=== PATIENT | male | born 1940 | race Caucasian/White ===

== ENCOUNTER 2017-05-13 21:49 | Observation (INO) | payer OTHER ==
[~2017-05-13] VITALS: Ht 177.8 cm; Wt 93.0 kg
[~2017-05-13 21:49] MED LIST: ACET325T51 PO; ALBUHFA IH; FLUT1AER IH; LEVO500T2 PO; PRED20TA3 PO; TAMS0.4C32 PO; TIOT18CA3 IH
[2017-05-13 22:32] LABS: BASOPHILS % (AUTO) 0.5 % (0.0-5.0); EOSINOPHILS % (AUTO) 0.3 % (0.0-8.0); HEMATOCRIT 43.5 % (42-54); LYMPHOCYTES % (AUTO) 9.6 % (21.0-51.0); MEAN CORPUSCULAR HEMOGLOBIN 31.4 pg (27.0-33.0); MEAN CORPUSCULAR HGB CONC 34.1 g/dL (32.0-36.0); MONOCYTES % (AUTO) 7.2 % (3.0-13.0); NEUTROPHILS % (AUTO) 82.4 % (40.0-77.0); PLATELET COUNT (AUTO) 241 K/uL (130-400); RED BLOOD CELL COUNT(AUTO) 4.72 MIL/uL (4.50-6.20); RED CELL DISTRIBUTION WIDTH 15.3 % (11.0-15.5); WHITE BLOOD COUNT (AUTO) 12.2 K/uL (4.8-10.8)
[2017-05-13 22:38] LABS: CREATININE 1.3 mg/dL (0.5-1.5); POTASSIUM 4.6 mmol/L (3.5-5.1)
[2017-05-13 22:42] LABS: INR 1.01 (0.85-1.15); PARTIAL THROMBOPLASTIN TIME 28.4 SEC (26.3-35.5); PROTHROMBIN TIME 10.6 SEC (9.6-11.6)
[2017-05-13 22:43] LABS: ALBUMIN 2.9 g/dL (3.5-5.0); BILIRUBIN,TOTAL 0.4 mg/dL (0.2-1.0); TOTAL PROTEIN, SERUM 6.1 g/dL (6.0-8.3)
[2017-05-14] MEDS ORDERED: SODIUM CHLORIDE 0.9% 10 ML VIAL IVP PRN (01:15)
[2017-05-14] MEDS ORDERED: SODIUM CHLORIDE 0.9% 10 ML VIAL IVP SCH (01:15)
[2017-05-14] MEDS ORDERED: LEVOFLOXACIN 500 MG/D5W 100 ML 100 ML ONE (02:02)
[2017-05-14] MEDS ORDERED: METRONIDAZOLE 500MG/100ML BAG 100 ML ONE (02:02)
[2017-05-14] MEDS ORDERED: IPRATROPIUM/ALBUTEROL SULFATE 3 ML SOLUTION IH ONE (06:26)
[2017-05-14 06:57] LABS: BASOPHILS % (AUTO) 0.6 % (0.0-5.0); EOSINOPHILS % (AUTO) 1.5 % (0.0-8.0); HEMATOCRIT 43.3 % (42-54); LYMPHOCYTES % (AUTO) 13.4 % (21.0-51.0); MEAN CORPUSCULAR HEMOGLOBIN 30.9 pg (27.0-33.0); MEAN CORPUSCULAR HGB CONC 34.1 g/dL (32.0-36.0); MEAN CORPUSCULAR VOLUME 90.8 fL (79-99); MONOCYTES % (AUTO) 9.4 % (3.0-13.0); NEUTROPHILS % (AUTO) 75.1 % (40.0-77.0); PLATELET COUNT (AUTO) 205 K/uL (130-400); RED BLOOD CELL COUNT(AUTO) 4.77 MIL/uL (4.50-6.20); RED CELL DISTRIBUTION WIDTH 14.8 % (11.0-15.5); WHITE BLOOD COUNT (AUTO) 8.4 K/uL (4.8-10.8)
[2017-05-14 07:06] LABS: POTASSIUM 4.2 mmol/L (3.5-5.1)
[2017-05-14 07:11] LABS: ALBUMIN 2.8 g/dL (3.5-5.0); BILIRUBIN,TOTAL 0.5 mg/dL (0.2-1.0); TOTAL PROTEIN, SERUM 5.9 g/dL (6.0-8.3)
== END 2017-05-14 09:59 | disposition home or self-care (01) ==
LOC: EDH 21:49 → EDHIP 23:05
PROVIDERS: ADMIT Internal Medicine; ATTEND Internal Medicine
DX: K92.2 Gastrointestinal hemorrhage, unspecified (principal); J44.9 Chronic obstructive pulmonary disease, unspecified; Z85.46 Personal history of malignant neoplasm of prostate
CPT/HCPCS: 36415 ×2; 74176; 80053 ×2; 82270; 85025 ×2; 85610; 85730; 94640; 99285; G0378 ×11; J1956; J3490

== ENCOUNTER 2018-03-08 14:02 | Emergency (ER) | payer OTHER ==
[~2018-03-08 14:02] MED LIST changes: +FURO20TA4 PO; -LEVO500T2 PO; +PANT40TA25 PO; +PRED10TA23 PO; -PRED20TA3 PO
[2018-03-08] MEDS ORDERED: ASPIRIN 325 MG TABLET ONE (14:07)
[2018-03-08 14:14] LABS: BASOPHILS % (AUTO) 0.4 % (0.0-5.0); EOSINOPHILS % (AUTO) 2.8 % (0.0-8.0); LYMPHOCYTES % (AUTO) 15.5 % (21.0-51.0); MEAN CORPUSCULAR HGB CONC 33.4 g/dL (32.0-36.0); MONOCYTES % (AUTO) 9.8 % (3.0-13.0); NEUTROPHILS % (AUTO) 71.5 % (40.0-77.0); PLATELET COUNT (AUTO) 227 K/uL (130-400); RED BLOOD CELL COUNT(AUTO) 4.95 MIL/uL (4.50-6.20); WHITE BLOOD COUNT (AUTO) 9.5 K/uL (4.8-10.8)
[2018-03-08] MEDS ORDERED: ONDANSETRON HCL 4 MG/2 ML VIAL ONE (14:15)
[2018-03-08] MEDS ORDERED: MORPHINE SULFATE 4 MG/1ML SYG ONE (14:15)
[2018-03-08 14:31] LABS: INR 1.02 (0.85-1.15); PARTIAL THROMBOPLASTIN TIME 30.7 SEC (26.3-35.5); PROTHROMBIN TIME 10.7 SEC (9.6-11.6)
[2018-03-08] MEDS ORDERED: IOHEXOL-350 75 ML VIAL IV ONE (14:37)
[2018-03-08 14:40] LABS: CREATININE 1.1 mg/dL (0.5-1.5); POTASSIUM 4.3 mmol/L (3.5-5.1)
[2018-03-08 14:51] LABS: ALBUMIN 3.2 g/dL (3.5-5.0); BILIRUBIN,TOTAL 0.7 mg/dL (0.2-1.0); TOTAL PROTEIN, SERUM 6.4 g/dL (6.0-8.3)
== END 2018-03-08 17:03 | disposition home or self-care (01) ==
LOC: EDH 14:02
DX: R10.30 Lower abdominal pain, unspecified (principal); R06.02 Shortness of breath; K21.9 Gastro-esophageal reflux disease without esophagitis; J44.9 Chronic obstructive pulmonary disease, unspecified; I10 Essential (primary) hypertension; Z85.46 Personal history of malignant neoplasm of prostate; Z88.0 Allergy status to penicillin; Z87.891 Personal history of nicotine dependence
CPT/HCPCS: 36415; 71045; 74177; 80053; 82550; 83874; 84484; 85025; 85610; 85730; 93005; 94761; 96374; 96375; 99284; J2270; J2405; Q9967

== ENCOUNTER 2018-07-31 09:40 | Inpatient (IN) | payer OTHER | END 2018-08-03 17:01 | disposition home or self-care (01) | LOC: EDH 09:40 → EDHIP 11:18 → 4BH 12:44 | DX: J44.1 Chronic obstructive pulmonary disease with (acute) exacerbation (principal); J96.21 Acute and chronic respiratory failure with hypoxia; I10 Essential (primary) hypertension; M19.90 Unspecified osteoarthritis, unspecified site ==

== ENCOUNTER 2018-09-18 10:54 | Emergency (ER) | payer OTHER ==
[~2018-09-18 10:54] MED LIST changes: +BRIM5DRO OP; -PANT40TA25 PO; -TAMS0.4C32 PO
[2018-09-18] MEDS ORDERED: ASPIRIN 325 MG TABLET ONE (11:07)
[2018-09-18 11:14] LABS: BASOPHILS % (AUTO) 0.6 % (0.0-5.0); EOSINOPHILS % (AUTO) 1.2 % (0.0-8.0); HEMATOCRIT 46.3 % (42-54); LYMPHOCYTES % (AUTO) 11.5 % (21.0-51.0); MEAN CORPUSCULAR HEMOGLOBIN 31.7 pg (27.0-33.0); MEAN CORPUSCULAR HGB CONC 33.7 g/dL (32.0-36.0); MONOCYTES % (AUTO) 10.6 % (3.0-13.0); NEUTROPHILS % (AUTO) 76.1 % (40.0-77.0); PLATELET COUNT (AUTO) 212 K/uL (130-400); RED BLOOD CELL COUNT(AUTO) 4.92 MIL/uL (4.50-6.20); RED CELL DISTRIBUTION WIDTH 15.1 % (11.0-15.5); WHITE BLOOD COUNT (AUTO) 10.3 K/uL (4.8-10.8)
[2018-09-18 11:22] LABS: CREATININE 1.2 mg/dL (0.5-1.5); POTASSIUM 4.6 mmol/L (3.5-5.1)
[2018-09-18 11:32] LABS: ALBUMIN 2.9 g/dL (3.5-5.0); BILIRUBIN,TOTAL 0.6 mg/dL (0.2-1.0)
[2018-09-18] MEDS ORDERED: MAG HYDROX/AL HYDROX/SIMETH ES 30 ML SUSP UDCUP ONE (11:33)
[2018-09-18] MEDS ORDERED: LIDOCAINE HCL 2% VISCOUS 15 ML UDCUP ONE (11:33)
[2018-09-18 11:41] LABS: PROTHROMBIN TIME 10.5 SEC (9.6-11.6)
[2018-09-18] MEDS ORDERED: SODIUM CHLORIDE 0.9% 1000ML 1,000 ML IV ONE (12:54)
[2018-09-18] MEDS ORDERED: IOHEXOL 350 MG/ML 100ML INFUS..BTL IV ONE (13:15)
== END 2018-09-18 15:06 | disposition home or self-care (01) ==
LOC: EDH 10:54
DX: R07.89 Other chest pain (principal); M25.552 Pain in left hip; K21.9 Gastro-esophageal reflux disease without esophagitis; J44.9 Chronic obstructive pulmonary disease, unspecified; I10 Essential (primary) hypertension; Z88.0 Allergy status to penicillin; Z91.013 Allergy to seafood; Z85.46 Personal history of malignant neoplasm of prostate; Z87.891 Personal history of nicotine dependence
CPT/HCPCS: 36415; 71045; 71275; 80053; 82550; 83874; 84484; 85025; 85378; 85610; 85730; 93005; 99285; J7030; Q9967

== ENCOUNTER 2018-12-11 13:00 | Inpatient (IN) | payer OTHER ==
[~2018-12-11] VITALS: Ht 180.3 cm; Wt 88.7 kg
[2018-12-11 15:43] VITALS: BP 112/69
[2018-12-11] MEDS ORDERED: TRAM50TA4 PO (16:19)
[2018-12-11] MEDS ORDERED: BRIM5DRO OP (16:19)
[2018-12-11] MEDS ORDERED: FLUT1AER IH (16:19)
[2018-12-11] MEDS ORDERED: FURO20TA4 PO (16:19)
[2018-12-11] MEDS ORDERED: IPRA3AMP24 IH (16:19)
[2018-12-11] MEDS ORDERED: TIOT4MIS5 IH (16:19)
[2018-12-11] MEDS ORDERED: ALBUHFA IH (16:19)
[2018-12-11] MEDS ORDERED: TAMS-1 PO (16:19)
[2018-12-11] MEDS ORDERED: PRED5TAB PO (16:19)
[2018-12-11 16:27] LABS: APPEARANCE,URINE Clear (CLEAR); BILIRUBIN,URINE Negative (NEGATIVE); COLOR,URINE Yellow (YELLOW); GLUCOSE, URINE (UA) Negative (NEGATIVE); KETONES,URINE Negative (NEGATIVE); LEUKOCYTE ESTERASE ,URINE Negative (NEGATIVE); NITRATE,URINE Negative (NEGATIVE); OCCULT BLOOD,URINE Negative (NEGATIVE); PH,URINE 5.5 (5.0-8.0); PROTEIN,URINE Negative (NEGATIVE); UROBILINOGEN,URINE 0.2 mg/dL (0.2-1.0)
[2018-12-12] VITALS (21 sets, daily range): BP systolic 111–157; BP diastolic 58–98
[2018-12-12] MEDS: CLINDAMYCIN 900 MG/D5% WATER 50 ML IV SCH ×2 (06:00→10:00)
[2018-12-12] MEDS ORDERED: LACTATED RINGERS 1000ML 1,000 ML IV ONE (07:07)
[2018-12-12] MEDS ORDERED: CEFAZOLIN SODIUM 1 GM VIAL ONE (07:38)
[2018-12-12] MEDS ORDERED: CELECOXIB 200 MG CAP ONE (08:29)
[2018-12-12] MEDS ORDERED: ACETAMINOPHEN 325 MG TAB ONE (08:29)
[2018-12-12] MEDS ORDERED: KETOROLAC TROMETHAMINE 15MG/ML ONE (08:29)
[2018-12-12] MEDS ORDERED: OXYCODONE HCL 10 MG TAB.SR.12H PO ONE (08:29)
--- NOTE | 2018-12-12 08:44 | NUR ---
PT. ALLERGIC TO PCN AND RETURNED ANCEF AND STERIL WATER X 2
[2018-12-12] MEDS ORDERED: CLINDAMYCIN PHOSPHATE 150 MG/ML 6ML VIAL ONE (08:56)
[2018-12-12] MEDS ORDERED: LIDOCAINE PF 2% 5ML ABBOJECT ONE (09:07)
[2018-12-12] MEDS ORDERED: SUCCINYLCHOLINE 200MG/10ML SYR ONE (09:07)
[2018-12-12] MEDS ORDERED: PROPOFOL 10 MG/ML 20ML VIAL IV ONE (09:08)
[2018-12-12] MEDS ORDERED: FENTANYL CITRATE PF 50 MCG/1 ML 2ML VIAL ONE (09:08)
[2018-12-12] MEDS ORDERED: ROCURONIUM 10MG/1ML SYR 10 MG/ML ML ONE ×2 (09:08→12:24)
[2018-12-12] MEDS ORDERED: ROPIVACAINE 0.5% 5MG/ML 30ML IJ ONE (09:12)
[2018-12-12] MEDS ORDERED: EPHEDRINE SULFATE 50 MG/ML AMPULE ONE (10:15)
[2018-12-12] MEDS ORDERED: METHYLPREDNISOLONE SOD SUCC 125MG/2ML VIAL ONE ×2 (10:30→10:32)
[2018-12-12] MEDS ORDERED: GLYCOPYRROLATE 1 MG/5 ML SYRINGE ONE (12:50)
[2018-12-12] MEDS ORDERED: NEOSTIGMINE 5MG/5ML SYR IV ONE (12:50)
[2018-12-12] MEDS ORDERED: KETOROLAC TROMETHAMINE 30MG/ML ONE (12:53)
[2018-12-12] MEDS ORDERED: LIDOCAINE HCL-MPF 1% 2ML VIAL IV PRN (13:00)
[2018-12-12] MEDS ORDERED: POTASSIUM CHLORIDE 10% ELIXIR 20 MEQ/15 ML UDCUP PO PRN (13:00)
[2018-12-12] MEDS ORDERED: ONDANSETRON HCL 4 MG/2 ML VIAL IVP PRN (13:00)
[2018-12-12] MEDS ORDERED: POTASSIUM CHLORIDE 20 MEQ ERTAB PO PRN (13:00)
[2018-12-12] MEDS ORDERED: DiphenhydrAMINE HCL 50 MG/ML VIAL IVP PRN (13:00)
[2018-12-12] MEDS ORDERED: POTASSIUM CHLORIDE 20MEQ/100ML 100 ML IV PRN (13:00)
[2018-12-12] MEDS: ACETAMINOPHEN EXTRA STRENGTH 500 MG TABLET PO SCH ×2 (13:00→20:34)
[2018-12-12] MEDS ORDERED: CALCIUM CARBONATE 500 MG TABLET PO PRN (13:00)
[2018-12-12] MEDS ORDERED: FERROUS FUMARATE 324 MG TABLET PO PRN (13:00)
[2018-12-12] MEDS ORDERED: OXYCODONE HCL 5 MG TAB PO PRN ×2 (13:00)
[2018-12-12] MEDS ORDERED: TRAMADOL HCL 50 MG TABLET PO PRN (13:00)
[2018-12-12] MEDS ORDERED: MEPERIDINE-PF 25 MG/ML SYG ONE (13:27)
--- NOTE | 2018-12-12 14:25 | NUR ---
POST OP PT ARRIVED TO FLOOR FROM PACU, PT IS DROWSY BUT AROUSES EASILY, C/O PAIN TO RIGHT KNEE, REPOSITIONED FOR COMFORT. GOOD CMS, PLAN OF CARE DISCUSSED CALL STONE WITHIN REACH. Addendum: 12/13/18 at 1521 by YULIYA CARTWRIGHT RN ADDENDUM TO POST OP NOTE BRUISING NOTED TO UPPER EXTREMITIES, OPSITE DRESSING TO RIGHT POSTERIOR FOREARM, SOME DRAINAGE NOTED TO DRESSING AND ALSO TO LEFT ELBOW, D/I.
[2018-12-12] MEDS: SODIUM CHLORIDE 0.9% 1000ML 1,000 ML IV SCH ×2 (14:53→22:08)
[2018-12-12] MEDS: KETOROLAC TROMETHAMINE 15MG/ML IV PRN (15:06)
[2018-12-12] MEDS ORDERED: SUB TO ALBUTEROL 2.5MG/3ML NEBULES PER P&T IH PRN (16:00)
[2018-12-12] MEDS ORDERED: TIOTROPIUM BROMIDE IH PRN (16:00)
[2018-12-12] MEDS ORDERED: FUROSEMIDE 20 MG TABLET PO PRN (16:00)
--- NOTE | 2018-12-12 17:15 | NUR ---
INITIAL AND REFERRAL PATIENT SEEN POST OP W SPOUSE AND FRIEND AT BEDSIDE, PT DROWSY BUT AAOX3, LIVES W SPOUSE WHO WILL PROVIDE TRANSPORT NO DME, NO PROVIDER, NO H/H; CONSENT FOR [facility], FOR [facility] & [facility]. [facility] PT NOTES WILL SEND REFERRAL IN AM Addendum: 12/14/18 at 1718 by SILVINO WETZEL RN CM Amended: Links added.
[2018-12-12] MEDS: VANCOMYCIN 1GM+NS 250ML 250 ML IV SCH (17:49)
[2018-12-12] MEDS: IPRATROPIUM/ALBUTEROL SULFATE 3 ML SOLUTION IH SCH ×2 (18:07→23:23)
[2018-12-12] MEDS: BUDESONIDE 0.5 MG/2 ML INH IH SCH (18:17)
--- NOTE | 2018-12-12 20:00 | NUR ---
ASSESSMENT AWAKE, ALERT, OX3,NO SOB, NO C/O PAIN AT THIS TIME, ENCOURAGE PATIENT TO TAKE DEEP BREATHING EXERCISES AND REINFORCE IS, LEFT HIP WITH DRESSING D/I, BLE SCDS IN PLACE, TEDS REMOVE FOR TONITE, IVF INFUSING WELL, TEACH PATIENT AND FAMILY PLAN OF CARE AND EXPECTED OUTCOME, PATIENT VERBALIZES UNDERSTANDING VIA TEACH BACK
[2018-12-12] MEDS: BRIMONIDINE TARTRATE OP SCH (20:30)
[2018-12-12] MEDS: TIMOLOL OP SCH (20:30)
[2018-12-12] MEDS: FAMOTIDINE 20MG TAB 20 MG TAB PO SCH (20:33)
[2018-12-12] MEDS: APIXABAN 2.5 MG TABLET PO SCH (20:33)
[2018-12-12] MEDS: TAMSULOSIN HCL 0.4 MG CAP.ER.24H PO SCH (20:33)
[2018-12-12] MEDS: PREGABALIN 25 MG CAP PO SCH (20:33)
[2018-12-13 03:53] VITALS: BP 109/62
[2018-12-13] MEDS: ACETAMINOPHEN EXTRA STRENGTH 500 MG TABLET PO SCH ×3 (05:18→20:28)
[2018-12-13] MEDS: VANCOMYCIN 1GM+NS 250ML 250 ML IV SCH (05:36)
[2018-12-13] MEDS: KETOROLAC TROMETHAMINE 15MG/ML IV PRN (05:37)
[2018-12-13 05:44] LABS: HEMATOCRIT 36.7 % (42-54); MEAN CORPUSCULAR HEMOGLOBIN 31.7 pg (27.0-33.0); MEAN CORPUSCULAR HGB CONC 33.9 g/dL (32.0-36.0); MEAN CORPUSCULAR VOLUME 93.6 fL (79-99); PLATELET COUNT (AUTO) 230 K/uL (130-400); RED BLOOD CELL COUNT(AUTO) 3.92 MIL/uL (4.50-6.20); RED CELL DISTRIBUTION WIDTH 14.5 % (11.0-15.5); WHITE BLOOD COUNT (AUTO) 10.1 K/uL (4.8-10.8)
[2018-12-13 05:54] LABS: CREATININE 0.9 mg/dL (0.5-1.5); POTASSIUM 4.6 mmol/L (3.5-5.1)
[2018-12-13] MEDS: IPRATROPIUM/ALBUTEROL SULFATE 3 ML SOLUTION IH SCH ×3 (06:55→18:36)
[2018-12-13] MEDS: BUDESONIDE 0.5 MG/2 ML INH IH SCH ×2 (06:55→18:56)
[2018-12-13 07:00] VITALS: BP 121/65
[2018-12-13] MEDS: POLYETHYLENE GLYCOL 3350 17 GM POWD.PACK PO SCH (08:38)
[2018-12-13] MEDS: APIXABAN 2.5 MG TABLET PO SCH ×2 (08:38→20:28)
[2018-12-13] MEDS: FAMOTIDINE 20MG TAB 20 MG TAB PO SCH ×2 (08:39→20:28)
[2018-12-13] MEDS: PREGABALIN 25 MG CAP PO SCH ×2 (08:39→20:28)
[2018-12-13] MEDS: TIMOLOL OP SCH ×2 (08:39→20:00)
[2018-12-13] MEDS: PREDNISONE 5 MG TABLET PO SCH (08:39)
[2018-12-13] MEDS: BRIMONIDINE TARTRATE OP SCH ×2 (08:39→20:00)
[2018-12-13] MEDS ORDERED: TAMSULOSIN HCL 0.4 MG CAP.ER.24H PO SCH (09:00)
--- NOTE | 2018-12-13 09:36 | NUR ---
REFERRAL IN PROCESS TO [facility] CONSENT, CALL TO [facility] FLOWER FAXED
[2018-12-13 11:00] VITALS: BP 83/46
--- NOTE | 2018-12-13 11:00 | NUR ---
LOW B/P PATIENT WAS WORKING WITH PHYSICAL THERAPY WHEN THEY NOTICED THAT HE BECAME PALE. THEY ASSISTED HIM BACK TO BED AND CALLED THE NURSE. HIS B/P WAS CHECKED AND IT WAS A BIT LOW (86/43). DR. NGUYEN WAS NOTIFIED AND ORDERED A 500ML NS BOLUS. WE WILL RECHECK B/P ONCE BOLUS IN FINISHED.
--- NOTE | 2018-12-13 13:05 | NUR ---
ORTHOPEDIC SURGEON DR. NGUYEN IN TO SEE PATIENT. NEW ORDERS RECEIVED.
[2018-12-13 13:27] LABS: HEMATOCRIT 33.6 % (42-54)
[2018-12-13 13:45] LABS: CREATINE KINASE, TOTAL 64 U/L (21-232); MYOGLOBIN 146 ng/mL (10-92); TROPONIN I < 0.04 ng/mL (0.00-0.06)
--- NOTE | 2018-12-13 13:45 | NUR ---
CARDIOLOGY DR. HELLER IN TO SEE PATIENT. NEW ORDERS RECEIVED.
[2018-12-13] MEDS ORDERED: METHYLPREDNISOLONE SOD SUCC 125MG/2ML VIAL IVP SCH (14:00)
[2018-12-13 16:00] VITALS: BP 107/60
[2018-12-13 18:01] LABS: CREATINE KINASE, TOTAL 73 U/L (21-232); MYOGLOBIN 117 ng/mL (10-92); TROPONIN I < 0.04 ng/mL (0.00-0.06)
[2018-12-13 19:29] VITALS: BP 102/60
[2018-12-13] MEDS: TAMSULOSIN HCL 0.4 MG CAP.ER.24H PO SCH (20:28)
[2018-12-13] MEDS: SODIUM CHLORIDE 0.9% 1000ML 1,000 ML IV SCH (21:58)
[2018-12-13 23:13] VITALS: BP 101/62
[2018-12-14] VITALS (29 sets, daily range): BP systolic 51–144; BP diastolic 24–81
[2018-12-14] MEDS: IPRATROPIUM/ALBUTEROL SULFATE 3 ML SOLUTION IH SCH ×5 (00:07→21:40)
[2018-12-14] MEDS: SODIUM CHLORIDE 0.9% 1000ML 1,000 ML IV SCH (03:45)
[2018-12-14] MEDS: ACETAMINOPHEN EXTRA STRENGTH 500 MG TABLET PO SCH ×3 (03:54→21:20)
[2018-12-14 04:51] LABS: HEMATOCRIT 32.3 % (42-54); MEAN CORPUSCULAR HEMOGLOBIN 32.1 pg (27.0-33.0); MEAN CORPUSCULAR HGB CONC 34.4 g/dL (32.0-36.0); MEAN CORPUSCULAR VOLUME 93.3 fL (79-99); PLATELET COUNT (AUTO) 213 K/uL (130-400); RED BLOOD CELL COUNT(AUTO) 3.47 MIL/uL (4.50-6.20); RED CELL DISTRIBUTION WIDTH 14.5 % (11.0-15.5); WHITE BLOOD COUNT (AUTO) 9.5 K/uL (4.8-10.8)
[2018-12-14 04:59] LABS: BAND NEUTROPHILS % (MANUAL) 3 % (0-2); LYMPHOCYTES % (MANUAL) 7 % (22-44); MAN.DIFF COMMENT-IMPRESSION MANUAL DIFFERENTIAL; MONOCYTES % (MANUAL) 8 % (2-9); PLATELET MORPHOLOGY COMMENT ADEQUATE; SEGMENTED NEUTROPHILS % 82 % (40-70)
[2018-12-14] MEDS: BUDESONIDE 0.5 MG/2 ML INH IH SCH ×2 (05:31→18:42)
--- NOTE | 2018-12-14 06:10 | NUR ---
MD CONSULT DR. DEE TO SEE PATIENT , PER DR. DEE CAN BE DISCHARGE WHEN READY
--- NOTE | 2018-12-14 08:43 | NUR ---
S/P PHYSICAL THERAPY BLOOD PRESSURE AT 101/55 WITH PULSE OF 94 PRIOR TO THERAPY. S/P PHYSICAL THERAPY AMBULATING ABOUT 25 FT WITH WALKER AND ASSISTANCE, BLOOD PRESSURE NOTED TO BE 101/55 WITH PULSE OF 100. NO NOTED SOB OR DISTRESS OF SYMPTOMS OF LOW BLOOD PRESSURE.
[2018-12-14] MEDS: FAMOTIDINE 20MG TAB 20 MG TAB PO SCH ×2 (08:55→21:18)
[2018-12-14] MEDS: POLYETHYLENE GLYCOL 3350 17 GM POWD.PACK PO SCH (08:55)
[2018-12-14] MEDS: PREDNISONE 5 MG TABLET PO SCH (08:55)
[2018-12-14] MEDS: PREGABALIN 25 MG CAP PO SCH ×2 (08:55→21:21)
[2018-12-14] MEDS: APIXABAN 2.5 MG TABLET PO SCH ×2 (08:55→21:20)
[2018-12-14] MEDS: BRIMONIDINE TARTRATE OP SCH ×2 (09:00→21:00)
[2018-12-14] MEDS: TIMOLOL OP SCH ×2 (09:00→21:00)
--- NOTE | 2018-12-14 10:43 | NUR ---
CRACKLES S/P DUONEBULIZER TREATMENT. CALLED ME AND STATED PATIENT WAS GETTING CONGESTED AND REQUIRED MORE OXYGEN. CRACKLES HEARD WITHOUT STETHOSCOPE. PATIENT HAS HISTORY OF EX-SMOKER, PULMONARY FIBROSIS, AND COPD WITH USE OF OXYGEN AT HOME. O2 SATURATION OF 90-87% AT 2 LPM/NC. PATIENT ENCOURAGED TO DO IS. HOB ELEVATED TO 45 DEGREES. IS X10 BREATHS DONE WITH MAX RATE AT 2,000. PATIENT SPIT OUT GREENISH-YELLOW COLORED BREATH. O2 SATURATION INCREASED TO 92%. OXYGEN INCREASED TO 3LMP/VIA. WILL MONITOR PT CLOSELY.
--- NOTE | 2018-12-14 11:00 | NUR ---
PAGEMasood NGUYEN CALLED, PENDING CALL BACK REGARDING INCREASE IN SHORTNESS OF BREATH IN PATIENT. PATIENT IS AAOX3, [id number] OF 89% ON 4 LPM/NC. NON REBREATH MASK APPLIED. DR. HELLER PAGED, DR. DEE PAGED. PENDING CALL BACK. AT BEDSIDE.
--- NOTE | 2018-12-14 11:00 | NUR ---
JENELLE RO'Masood FOR [facility] SPOKE TO ALTAF ON THE PHONE, ADIVSED THAT JENELLE BAKER WILL INFORM PRIMARY EMBER Addendum: 12/14/18 at 1728 by SILVINO WETZEL RN CM Amended: Links added.
[2018-12-14] MEDS ORDERED: METHYLPREDNISOLONE SOD SUCC 40MG/ML 1ML ONE ×2 (12:20→12:21)
--- NOTE | 2018-12-14 12:20 | NUR ---
BIPAP/MEDICATIONS FOR SOB BIPAP PLACED ON PATIENT. PER DR. DEE, OK FOR LASIX IV AND SOLUMEDROL IV STAT. CHEST XRAY TO BE TAKEN. PATIENT IS AAOX3 WITH SHORTNESS OF BREATH, AT BEDSIDE. ATROVENT NEBULIZER TO BE GIVEN. DR. NGUYEN ON HER WAY UP TO SEE PATIENT.
[2018-12-14] MEDS ORDERED: FUROSEMIDE 10 MG/ML 2ML VIAL IV PRN (12:30)
[2018-12-14] MEDS ORDERED: IPRATROPIUM 0.5 MG/2.5 ML INH IH PRN (12:30)
[2018-12-14] MEDS ORDERED: FUROSEMIDE 10 MG/ML 2ML VIAL ONE (12:30)
[2018-12-14 12:42] LABS: ABG BASE EXCESS -1.3 mmol/L (-2.0-3.0); ABG HCO3 23.5 mmol/L (21.0-28.0); ABG OXYGEN SATURATION 93.4 % (95.0-99.0); ABG PCO2 40 mmHg (35-48)
[2018-12-14] MEDS ORDERED: METHYLPREDNISOLONE SOD SUCC 40MG/ML 1ML IVP SCH (13:18)
--- NOTE | 2018-12-14 13:30 | NUR ---
RAPID RESPONSE RAPID RESPONSE CALLED TO ROSELIA-LOOKING COLOR ON PATIENT, CONTINUATION OF SHORTNESS OF BREATH, AND HEART RATE DROPPING FROM 80S TO 30S PER MONITOR. TELMONITOR READING RATE AT 87 VPACED PER HISTORY OF PACEMAKER. RAPID RESPONSE CANCELLED. PATIENT WILL BE TRANSFERRED TO ICU PER DR. NGUYEN ORDERS.
--- NOTE | 2018-12-14 13:45 | NUR ---
TRANSFER Received pt from 4th floor, report given by EMBER Goode. On Bipap, tolerating prescribed settings. Spouse at bedside. 20 gauge IV catheter started to left wrist, patency confirmed. V-paced in 70s. High-garcía's position. SCDs in place.
--- NOTE | 2018-12-14 13:45 | NUR ---
TRANSFER TO ICU TRANSFER TO ROOM 217. PATIENT IS AAOX3, REPORT GIVEN TO IMELDA PA. VITAL SIGNS STABLE, BIPAP IN PLACE. [id number] OF 99%.
[2018-12-14] MEDS ORDERED: POTASSIUM CHLORIDE 20MEQ/100ML 100 ML IV PRN (14:30)
[2018-12-14] MEDS ORDERED: LIDOCAINE HCL-MPF 1% 2ML VIAL IV PRN (14:30)
--- NOTE | 2018-12-14 14:30 | NUR ---
MD VISIT Dr. Rosas in to see pt. Update given. New orders received and will carry out.
[2018-12-14] MEDS: DOXYCYCLINE 100MG+NS 250ML 250 ML IV SCH (14:38)
[2018-12-14] MEDS: FUROSEMIDE 10 MG/ML 2ML VIAL IV SCH (14:38)
[2018-12-14 14:50] LABS: HEMATOCRIT 36.5 % (42-54); MEAN CORPUSCULAR HEMOGLOBIN 31.8 pg (27.0-33.0); MEAN CORPUSCULAR HGB CONC 33.7 g/dL (32.0-36.0); MEAN CORPUSCULAR VOLUME 94.4 fL (79-99); PLATELET COUNT (AUTO) 253 K/uL (130-400); RED BLOOD CELL COUNT(AUTO) 3.86 MIL/uL (4.50-6.20); RED CELL DISTRIBUTION WIDTH 14.8 % (11.0-15.5); WHITE BLOOD COUNT (AUTO) 6.2 K/uL (4.8-10.8)
[2018-12-14 15:01] LABS: MAGNESIUM 1.7 mg/dL (1.80-2.40); POTASSIUM 4.7 mmol/L (3.5-5.1)
[2018-12-14] MEDS: METHYLPREDNISOLONE SOD SUCC 40MG/ML 1ML IVP SCH ×2 (15:10→23:07)
[2018-12-14] MEDS: NOREPINEPHRINE 4MG/NS 250ML 250 ML IV SCH (15:20)
--- NOTE | 2018-12-14 15:30 | NUR ---
REFUSAL Pt refused Yancey catheter insertion, reassurance unsuccessful. Will reattempt later.
[2018-12-14 15:42] LABS: BAND NEUTROPHILS % (MANUAL) 25 % (0-2); LYMPHOCYTES % (MANUAL) 3 % (22-44); MAN.DIFF COMMENT-IMPRESSION MANUAL DIFFERENTIAL; MONOCYTES % (MANUAL) 1 % (2-9); PLATELET MORPHOLOGY COMMENT ADEQUATE; SEGMENTED NEUTROPHILS % 71 % (40-70)
[2018-12-14] MEDS ORDERED: MAGNESIUM 2GM PREMIX 50ML 50 ML IV ONE (15:42)
[2018-12-14] MEDS ORDERED: MAGNESIUM SULFATE 1 GM in SODIUM CHLORIDE 0.9% 50 ML IV PRN (15:45)
[2018-12-14] MEDS: INSULIN HUMULIN R 100 UNIT/ML 3ML SQ SCH ×2 (15:46→22:47)
--- NOTE | 2018-12-14 16:30 | NUR ---
PACEMAKER [employer] patient service representative in to interrogate device, negative for any events, normal functioning as per Rep.
[2018-12-14] MEDS: MEROPENEM 1 GM VIAL IVP SCH (16:45)
--- NOTE | 2018-12-14 17:14 | NUR ---
REFUSAL Pt awake, alert, and oriented x3. Continues to refuse mccracken catheter insertion despite explanation given. Spouse at bedside.
--- NOTE | 2018-12-14 17:29 | NUR ---
MD NOTIFICATION Dr. Narayan notified about pt transferred to ICU, no orders received.
--- NOTE | 2018-12-14 17:32 | NUR ---
CALL MADE TO [facility] TO LET ALTAF KNOW PT IN ICU ADVISED THE AUTH FOR THE SNF IS GOOD UNTIL MONDAY Addendum: 12/14/18 at 1734 by SILVINO WETZEL RN Amended: Links added.
[2018-12-14] MEDS: ACETYLCYSTEINE 20% 200MG/ML 4ML VIAL IH SCH ×2 (18:42→21:41)
[2018-12-14] MEDS: TAMSULOSIN HCL 0.4 MG CAP.ER.24H PO SCH (21:21)
[2018-12-15] VITALS (36 sets, daily range): BP systolic 69–145; BP diastolic 38–81
[2018-12-15] MEDS: IPRATROPIUM/ALBUTEROL SULFATE 3 ML SOLUTION IH SCH ×6 (01:36→21:53)
[2018-12-15] MEDS: ACETYLCYSTEINE 20% 200MG/ML 4ML VIAL IH SCH ×6 (01:37→21:52)
[2018-12-15] MEDS: MEROPENEM 1 GM VIAL IVP SCH ×3 (01:45→18:49)
[2018-12-15] MEDS: NOREPINEPHRINE 4MG/NS 250ML 250 ML IV SCH (01:58)
[2018-12-15] MEDS: DOXYCYCLINE 100MG+NS 250ML 250 ML IV SCH ×2 (01:59→14:44)
[2018-12-15] MEDS: FUROSEMIDE 10 MG/ML 2ML VIAL IV SCH ×2 (02:02→14:41)
[2018-12-15 03:50] LABS: HEMATOCRIT 36.2 % (42-54); MEAN CORPUSCULAR HEMOGLOBIN 31.1 pg (27.0-33.0); MEAN CORPUSCULAR HGB CONC 32.8 g/dL (32.0-36.0); MEAN CORPUSCULAR VOLUME 94.7 fL (79-99); PLATELET COUNT (AUTO) 239 K/uL (130-400); RED BLOOD CELL COUNT(AUTO) 3.83 MIL/uL (4.50-6.20); RED CELL DISTRIBUTION WIDTH 14.9 % (11.0-15.5); WHITE BLOOD COUNT (AUTO) 16.9 K/uL (4.8-10.8)
[2018-12-15 04:00] LABS: ABG HCO3 22.7 mmol/L (21.0-28.0); ABG OXYGEN SATURATION 97.3 % (95.0-99.0); ABG PCO2 32 mmHg (35-48)
[2018-12-15 04:07] LABS: INR 1.08 (0.85-1.15); PARTIAL THROMBOPLASTIN TIME 36.4 SEC (26.3-35.5); PROTHROMBIN TIME 11.3 SEC (9.6-11.6)
[2018-12-15 04:21] LABS: ALBUMIN 2.3 g/dL (3.5-5.0); BILIRUBIN,TOTAL 0.5 mg/dL (0.2-1.0); CREATININE 1.2 mg/dL (0.5-1.5); MAGNESIUM 2.4 mg/dL (1.80-2.40); PHOSPHORUS 3.5 mg/dL (2.5-4.9); POTASSIUM 4.8 mmol/L (3.5-5.1); THYROID STIMULATING HORMONE 0.09 uIU/mL (0.36-3.74); TOTAL PROTEIN, SERUM 5.8 g/dL (6.0-8.3)
[2018-12-15] MEDS: ACETAMINOPHEN EXTRA STRENGTH 500 MG TABLET PO SCH ×4 (05:00→20:39)
[2018-12-15] MEDS: BUDESONIDE 0.5 MG/2 ML INH IH SCH ×2 (05:17→18:09)
[2018-12-15] MEDS: INSULIN HUMULIN R 100 UNIT/ML 3ML SQ SCH ×4 (06:32→21:38)
[2018-12-15] MEDS: METHYLPREDNISOLONE SOD SUCC 40MG/ML 1ML IVP SCH ×3 (06:34→23:40)
[2018-12-15] MEDS: PREGABALIN 25 MG CAP PO SCH ×2 (08:49→20:38)
[2018-12-15] MEDS: FAMOTIDINE 20MG TAB 20 MG TAB PO SCH ×2 (08:50→20:38)
[2018-12-15] MEDS: POLYETHYLENE GLYCOL 3350 17 GM POWD.PACK PO SCH (08:50)
[2018-12-15] MEDS: APIXABAN 2.5 MG TABLET PO SCH ×2 (08:50→20:37)
[2018-12-15] MEDS: BRIMONIDINE TARTRATE OP SCH ×2 (09:00→20:57)
[2018-12-15] MEDS: TIMOLOL OP SCH ×2 (09:00→20:57)
[2018-12-15] MEDS ORDERED: BISACODYL 10 MG SUPP.RECT RC PRN (13:00)
[2018-12-15] MEDS: TAMSULOSIN HCL 0.4 MG CAP.ER.24H PO SCH (20:37)
[2018-12-16] VITALS (44 sets, daily range): BP systolic 104–153; BP diastolic 44–109
[2018-12-16] MEDS: ACETYLCYSTEINE 20% 200MG/ML 4ML VIAL IH SCH ×6 (01:32→22:22)
[2018-12-16] MEDS: IPRATROPIUM/ALBUTEROL SULFATE 3 ML SOLUTION IH SCH ×4 (01:32→13:21)
--- NOTE | 2018-12-16 01:50 | NUR ---
BIPAP PATIENT REMOVED BIPAP. REFUSED TO PLACE BACK ON. EDUCATED ON USE. CONTINUES TO REFUSE. NASAL CANNULA APPLIED. PATIENT ACKNOWLEDGED TO INFORM IF THERE ARE ANY CHANGES IN BREATHING.
[2018-12-16] MEDS: MEROPENEM 1 GM VIAL IVP SCH ×3 (02:02→16:48)
[2018-12-16] MEDS: DOXYCYCLINE 100MG+NS 250ML 250 ML IV SCH ×2 (02:09→14:55)
[2018-12-16] MEDS: FUROSEMIDE 10 MG/ML 2ML VIAL IV SCH ×2 (02:25→14:55)
[2018-12-16 03:40] LABS: MEAN CORPUSCULAR HEMOGLOBIN 31.6 pg (27.0-33.0); MEAN CORPUSCULAR HGB CONC 33.8 g/dL (32.0-36.0); MEAN CORPUSCULAR VOLUME 93.5 fL (79-99); PLATELET COUNT (AUTO) 235 K/uL (130-400); RED BLOOD CELL COUNT(AUTO) 3.32 MIL/uL (4.50-6.20); RED CELL DISTRIBUTION WIDTH 14.6 % (11.0-15.5); WHITE BLOOD COUNT (AUTO) 17.1 K/uL (4.8-10.8)
[2018-12-16 04:16] LABS: CREATININE 0.9 mg/dL (0.5-1.5); MAGNESIUM 2.3 mg/dL (1.80-2.40); PHOSPHORUS 2.7 mg/dL (2.5-4.9); POTASSIUM 4.6 mmol/L (3.5-5.1)
[2018-12-16] MEDS: ACETAMINOPHEN EXTRA STRENGTH 500 MG TABLET PO SCH ×3 (05:08→21:38)
[2018-12-16] MEDS: INSULIN HUMULIN R 100 UNIT/ML 3ML SQ SCH ×4 (06:37→21:52)
[2018-12-16] MEDS: METHYLPREDNISOLONE SOD SUCC 40MG/ML 1ML IVP SCH ×3 (06:40→22:46)
[2018-12-16] MEDS: BUDESONIDE 0.5 MG/2 ML INH IH SCH ×2 (07:15→18:20)
[2018-12-16] MEDS: PREGABALIN 25 MG CAP PO SCH ×2 (09:02→21:36)
[2018-12-16] MEDS: POLYETHYLENE GLYCOL 3350 17 GM POWD.PACK PO SCH (09:02)
[2018-12-16] MEDS: FAMOTIDINE 20MG TAB 20 MG TAB PO SCH ×2 (09:02→21:36)
[2018-12-16] MEDS: APIXABAN 2.5 MG TABLET PO SCH ×2 (09:02→21:37)
[2018-12-16] MEDS: BRIMONIDINE TARTRATE OP SCH ×2 (09:03→21:51)
[2018-12-16] MEDS: TIMOLOL OP SCH ×2 (09:03→21:51)
--- NOTE | 2018-12-16 14:00 | NUR ---
DISCUSSED DC ZAC Alcocer MD. NO DOWNGRADE TO [facility] TODAY NOT READY INSURANCE AUTH FOR [facility] REC'D MONDAY, WILL LOSE TOMORROW, AND WILL NEED TO RESUBMIT ON MONDAY Addendum: 12/16/18 at 1438 by SILVINO WETZEL RN Amended: Links added.
[2018-12-16] MEDS: IPRATROPIUM 0.5 MG/2.5 ML INH IH SCH ×2 (18:20→22:21)
[2018-12-16] MEDS: TAMSULOSIN HCL 0.4 MG CAP.ER.24H PO SCH (21:36)
[2018-12-17] VITALS (19 sets, daily range): BP systolic 105–150; BP diastolic 63–110
[2018-12-17] MEDS: MEROPENEM 1 GM VIAL IVP SCH ×3 (00:53→16:30)
[2018-12-17] MEDS: IPRATROPIUM 0.5 MG/2.5 ML INH IH SCH ×6 (01:39→22:08)
[2018-12-17] MEDS: ACETYLCYSTEINE 20% 200MG/ML 4ML VIAL IH SCH ×2 (01:39→06:00)
[2018-12-17] MEDS: DOXYCYCLINE 100MG+NS 250ML 250 ML IV SCH (02:00)
[2018-12-17] MEDS: FUROSEMIDE 10 MG/ML 2ML VIAL IV SCH (02:59)
[2018-12-17 03:40] LABS: HEMATOCRIT 34.4 % (42-54); MEAN CORPUSCULAR HEMOGLOBIN 31.2 pg (27.0-33.0); MEAN CORPUSCULAR HGB CONC 33.1 g/dL (32.0-36.0); MEAN CORPUSCULAR VOLUME 94.3 fL (79-99); NUCLEATED RED BLOOD CELLS 0.3 % (0.0-0.19); PLATELET COUNT (AUTO) 276 K/uL (130-400); RED BLOOD CELL COUNT(AUTO) 3.65 MIL/uL (4.50-6.20); RED CELL DISTRIBUTION WIDTH 14.8 % (11.0-15.5); WHITE BLOOD COUNT (AUTO) 14.1 K/uL (4.8-10.8)
[2018-12-17 03:59] LABS: CREATININE 0.9 mg/dL (0.5-1.5); MAGNESIUM 2.4 mg/dL (1.80-2.40); PHOSPHORUS 3.1 mg/dL (2.5-4.9); POTASSIUM 4.8 mmol/L (3.5-5.1)
[2018-12-17] MEDS: ACETAMINOPHEN EXTRA STRENGTH 500 MG TABLET PO SCH (05:02)
[2018-12-17] MEDS: BUDESONIDE 0.5 MG/2 ML INH IH SCH ×2 (06:30→19:09)
[2018-12-17] MEDS: METHYLPREDNISOLONE SOD SUCC 40MG/ML 1ML IVP SCH ×2 (06:44→14:58)
[2018-12-17] MEDS: INSULIN HUMULIN R 100 UNIT/ML 3ML SQ SCH ×4 (06:45→21:00)
[2018-12-17] MEDS: BRIMONIDINE TARTRATE OP SCH ×2 (06:58→22:01)
[2018-12-17] MEDS: TIMOLOL OP SCH ×2 (06:58→22:01)
[2018-12-17] MEDS: PREGABALIN 25 MG CAP PO SCH ×2 (08:52→22:01)
[2018-12-17] MEDS: POLYETHYLENE GLYCOL 3350 17 GM POWD.PACK PO SCH (08:53)
[2018-12-17] MEDS: APIXABAN 2.5 MG TABLET PO SCH ×2 (08:53→22:01)
[2018-12-17] MEDS: FAMOTIDINE 20MG TAB 20 MG TAB PO SCH ×2 (08:53→22:01)
[2018-12-17] MEDS ORDERED: PHARMACY COMMUNICATION MISC SCH (13:15)
[2018-12-17] MEDS ORDERED: ACETAMINOPHEN ELIXIR 160 MG/5ML UDCUP PO PRN (13:15)
[2018-12-17] MEDS ORDERED: FUROSEMIDE 20 MG TABLET PO SCH (14:00)
[2018-12-17] MEDS ORDERED: ACETAMINOPHEN ELIXIR 325 MG/10.15ML UDCUP PO SCH (14:00)
--- NOTE | 2018-12-17 16:45 | NUR ---
TRANSFER REPORT GIVEN TO EMBER CUMMINGS AND PATIENT TRANSFERRED TO RM 429; AT BEDSIDE
--- NOTE | 2018-12-17 17:30 | NUR ---
DR. PATRICK PARKER NOTIFIED THAT ELIQUIS DOSE INCREASED FROM 2.5MG TO 5MG. DR. NGUYEN REPLIED OKAY TO CONTINUE INCREASED DOSE OF ELIQUIS. ALSO INFORMED MD THAT PATIENTS BACK OF LEFT KNEE HAS BRUISING AND LEFT HIP HAS BRUISING AND SWELLING. LEFT HIP SWELLING IS BIGGER THAN EXPECTED DURING THESE TYPES OF DRESSING CHANGES. MD REPLIED SINCE PATIENT HAS NO PAIN TO JUST CONTINUE TO MONITOR.
[2018-12-17] MEDS: ACETAMINOPHEN ELIXIR 650 MG/20.3 ML UDCUP PO PRN (22:00)
[2018-12-17] MEDS: DOXYCYCLINE HYCLATE 100 MG TABLET PO SCH (22:01)
[2018-12-17] MEDS: TAMSULOSIN HCL 0.4 MG CAP.ER.24H PO SCH (22:01)
[2018-12-18] MEDS: MEROPENEM 1 GM VIAL IVP SCH ×2 (00:39→09:26)
[2018-12-18] MEDS: METHYLPREDNISOLONE SOD SUCC 40MG/ML 1ML IVP SCH ×2 (00:39→09:26)
[2018-12-18] MEDS: IPRATROPIUM 0.5 MG/2.5 ML INH IH SCH ×6 (01:43→22:07)
[2018-12-18 03:42] VITALS: BP 124/87
[2018-12-18 05:06] LABS: HEMATOCRIT 32.1 % (42-54); MEAN CORPUSCULAR HEMOGLOBIN 31.6 pg (27.0-33.0); NUCLEATED RED BLOOD CELLS 0.2 % (0.0-0.19); PLATELET COUNT (AUTO) 292 K/uL (130-400); RED BLOOD CELL COUNT(AUTO) 3.46 MIL/uL (4.50-6.20); RED CELL DISTRIBUTION WIDTH 14.9 % (11.0-15.5); WHITE BLOOD COUNT (AUTO) 11.4 K/uL (4.8-10.8)
[2018-12-18] MEDS: BUDESONIDE 0.5 MG/2 ML INH IH SCH ×2 (05:08→19:48)
[2018-12-18 05:26] LABS: CREATININE 0.9 mg/dL (0.5-1.5); MAGNESIUM 2.3 mg/dL (1.80-2.40); POTASSIUM 4.7 mmol/L (3.5-5.1)
[2018-12-18] MEDS: FUROSEMIDE 20 MG TABLET PO SCH ×2 (06:10→20:09)
[2018-12-18] MEDS: INSULIN HUMULIN R 100 UNIT/ML 3ML SQ SCH ×4 (06:10→20:18)
[2018-12-18 08:23] VITALS: BP 143/85
[2018-12-18] MEDS: POLYETHYLENE GLYCOL 3350 17 GM POWD.PACK PO SCH (09:00)
--- NOTE | 2018-12-18 10:00 | NUR ---
ELIQUIS PATIENT REFUSED TO TAKE ELIQUIS 5MG PO BID, PATIENT STATED HE WANTED TO TAKE ELIQUIS 2.5MG PO. I DID INFORM PATIENT THAT DR. NGUYEN IS AWARE OF INCREASED DOSE OF ELIQUIS AND DID OKAY FOR PATIENT TO CONTINUE INCREASED DOSE OF ELIQUIS. PATIENT REPLIED "I HAVE A LOT OF BRUISING EVERYWHERE, I DON'T NEED THAT A HIGHER DOSE OF THE BLOOD THINNER." ADMINISTERED ELIQUIS 2.5 MG PO BID
[2018-12-18] MEDS: BRIMONIDINE TARTRATE OP SCH ×2 (10:17→20:18)
[2018-12-18] MEDS: TIMOLOL OP SCH ×2 (10:17→20:18)
[2018-12-18] MEDS: PREGABALIN 25 MG CAP PO SCH ×2 (10:18→20:09)
[2018-12-18] MEDS: DOXYCYCLINE HYCLATE 100 MG TABLET PO SCH ×2 (10:19→20:08)
[2018-12-18] MEDS: APIXABAN 2.5 MG TABLET PO SCH ×2 (10:19→20:09)
[2018-12-18] MEDS: FAMOTIDINE 20MG TAB 20 MG TAB PO SCH ×2 (10:19→20:09)
--- NOTE | 2018-12-18 11:30 | NUR ---
PLAN CHANGE TO [facility] AUTH EXPIRING FOR [facility], PT STILL ON BIPAP MAYBE NEEDS LASIX TODAY? POKE TO WYATT LINARES RE DC NEEDS,'SWITCH TO [facility] WITH PT'S OK , REFERAL SENT, NOHELIA CAME TO SEE JENELLE ZUNIGA IN PROCESS Addendum: 12/20/18 at 2026 by SILVINO WETZEL RN CM Amended: Links added.
[2018-12-18 11:43] VITALS: BP 135/84
--- NOTE | 2018-12-18 11:45 | NUR ---
DYSPHAGIA LEONELA SAVAGE. -S/S OF ASPIRATION. RECOMMEND CONTINUED REGULAR, THIN LIQUIDS (GI SOFT DIET), PILLS WHOLE WITH LIQUIDS ONE BY ONE. Addendum: 12/18/18 at 1312 by RAJIV BELL, [facility] Amended: Links added.
[2018-12-18 16:28] VITALS: BP 132/71
--- NOTE | 2018-12-18 16:30 | NUR ---
AUTH REC FROM [facility] NO DC ORDERS TODAY. SPOKE W KEVIN PA. Addendum: 12/20/18 at 2034 by SILVINO WETZEL RN CM ERROR!!- SHOULD READ REFERRAL TO [facility], JENELLE PENDING NO DC ORDERS TODAY, SPOKE TO KEVIN PA
--- NOTE | 2018-12-18 16:31 | NUR ---
REFERRAL TO [facility], AUTH PENDING NO DC ORDERS TODAY, SPOKE TO PRIMARY RN
[2018-12-18 19:05] VITALS: BP 141/99
[2018-12-18] MEDS: ACETAMINOPHEN ELIXIR 650 MG/20.3 ML UDCUP PO PRN (20:08)
[2018-12-18] MEDS: TAMSULOSIN HCL 0.4 MG CAP.ER.24H PO SCH (20:09)
[2018-12-18 23:22] VITALS: BP 127/77
[2018-12-19] MEDS: IPRATROPIUM 0.5 MG/2.5 ML INH IH SCH ×3 (02:03→09:42)
[2018-12-19 03:20] VITALS: BP 147/73
[2018-12-19] MEDS: BUDESONIDE 0.5 MG/2 ML INH IH SCH ×2 (05:09→18:25)
[2018-12-19] MEDS: FUROSEMIDE 20 MG TABLET PO SCH ×2 (05:29→17:24)
[2018-12-19] MEDS: INSULIN HUMULIN R 100 UNIT/ML 3ML SQ SCH ×3 (05:36→17:19)
[2018-12-19 07:53] VITALS: BP 152/69
[2018-12-19 07:59] VITALS: BP 152/69
[2018-12-19] MEDS: PREGABALIN 25 MG CAP PO SCH ×2 (08:52→21:35)
[2018-12-19] MEDS: DOXYCYCLINE HYCLATE 100 MG TABLET PO SCH ×2 (08:52→21:35)
[2018-12-19] MEDS: APIXABAN 2.5 MG TABLET PO SCH ×2 (08:52→21:36)
[2018-12-19] MEDS: POLYETHYLENE GLYCOL 3350 17 GM POWD.PACK PO SCH (08:53)
[2018-12-19] MEDS: FAMOTIDINE 20MG TAB 20 MG TAB PO SCH ×2 (08:53→21:35)
[2018-12-19] MEDS: TIMOLOL OP SCH (08:55)
[2018-12-19] MEDS: BRIMONIDINE TARTRATE OP SCH (08:55)
[2018-12-19] MEDS: ACETAMINOPHEN ELIXIR 650 MG/20.3 ML UDCUP PO PRN ×2 (09:00→15:17)
[2018-12-19] MEDS ORDERED: PREDNISONE 20 MG TABLET PO SCH (09:00)
[2018-12-19] MEDS ORDERED: FUROSEMIDE 10 MG/ML 4ML VIAL IV SCH (12:00)
[2018-12-19 12:06] VITALS: BP 106/59
[2018-12-19] MEDS ORDERED: IPRATROPIUM 0.5 MG/2.5 ML INH IH PRN (13:45)
--- NOTE | 2018-12-19 16:13 | NUR ---
RDSCREEN - LOS X 7 Pt Admitted for Fx of Head of Left Femur. Pt tolerating GI Soft/[place], Mechanical Soft Diet with no report of GI distress. Poor PO intake at <50% as per Pt. Pt requests Ensure with meals. Pt LBM 12/18/18. Pt monitored labs: Glu 129, BUN 37, Ca 8.4, Alb 2.3. Pt reports Fish Allergy. RD to continue to monitor. Please notify RD as additional nutrition concerns arise. Thank you. Addendum: 12/19/18 at [address] Amended: Links added.
[2018-12-19 16:24] VITALS: BP 93/56
--- NOTE | 2018-12-19 16:30 | NUR ---
JENELLE RECD FROM [facility] DC TODAY? SPOKE TO PRIMARY RN
[2018-12-19] MEDS ORDERED: APIX2.5T PO (17:46)
[2018-12-19] MEDS ORDERED: ACET650S28 PO (17:46)
[2018-12-19 19:44] VITALS: BP 123/67
--- NOTE | 2018-12-19 20:05 | NUR ---
DRESSING CHANGE LEFT HIP DRESSING CHANGED, CLEANSED INCISION WITH NORMAL SALINE, INCISION WITH NO REDNESS OR DRAINAGE NOTED, EDEMA TO HIP AREA AND EXTENSIVE BRUISING IS NOTED, COVERED INCISION WITH GAUZE AND HYPAFIX TAPE. ALSO CHANGED DRESSING TO RIGHT POSTERIOR FOREARM, SKIN TEAR IS DRY, NO REDNESS, CLEANSED WITH NORMAL SALINE AND COVERED WITH NON ADHESIVE GAUZE PAD AND USED PAPER TAPE. TOLERATED WELL.
--- NOTE | 2018-12-19 20:43 | NUR ---
CALL TO [facility] T/C PLACED TO [facility], KENA HOGUE WHO TRANSFERRED CALL, PHONE IS RINGING SEVERAL TIMES AND NO ANSWER. AND LENNIE [facility] SAID WILL TAKE REPORT.
--- NOTE | 2018-12-19 21:05 | NUR ---
DISCHARGE INSTRUCTIONS REVIEWED DISCHARGE INSTRUCTIONS WITH PT AND , COPY OF DISCHARGE INSTRUCTIONS GIVEN AND ALSO PLACED A COPY FOR FACILITY ALSO INFORMED THAT THE PRESCRIPTION HAS BEEN PLACED IN THE PACKET FOR FACILITY.
--- NOTE | 2018-12-19 21:20 | NUR ---
CALL FROM [facility] T/C FROM [facility], REQUESTING MED REC TO BE FAXED. Addendum: 12/20/18 at 0316 by YULIYA CARTWRIGHT RN ADDENDUM ALSO SAID THAT THEIR TRYING TO REACH THEIR [employer]. STATES THAT USUALLY THEIR [employer] INTER[employer]IP IS NOT AVAILABLE AFTER 6PM.
[2018-12-19] MEDS: TAMSULOSIN HCL 0.4 MG CAP.ER.24H PO SCH (21:35)
--- NOTE | 2018-12-19 21:50 | NUR ---
CALL FROM [facility] T/C FROM [facility] ASKING HOW MUCH THE PT WEIGHS SO THEY CAN BRING THE APPROPRIATE WHEELCHAIR. ALSO REMINDED HER THAT PT USES 02 .
--- NOTE | 2018-12-19 22:25 | NUR ---
DISCHARGE PT WAS DISCHARGE TO [facility], NO DISTRESS NOTED.
== END 2018-12-19 22:23 | DRG 853 ==
LOC: EDSTATUS 13:00 → DAHIP 12-12 06:42 → 4AH 12-12 13:24 → 2CH 12-14 13:52 → 2BH 12-15 13:30 → 4AH 12-17 16:55
PROVIDERS: ADMIT Orthopaedic Surgery; ATTEND Orthopaedic Surgery
PROC: 0SRB0JZ Replacement of Left Hip Joint with Synthetic Substitute, Open Approach (ICD-10-PCS; principal; 2018-12-12 09:48)
PROC: 5A09357 Assistance with Respiratory Ventilation, Less than 24 Consecutive Hours, Continuous Positive Airway Pressure (ICD-10-PCS; 2018-12-14)
PROC: 5A09357 Assistance with Respiratory Ventilation, Less than 24 Consecutive Hours, Continuous Positive Airway Pressure (ICD-10-PCS; 2018-12-15)
PROC: 5A09357 Assistance with Respiratory Ventilation, Less than 24 Consecutive Hours, Continuous Positive Airway Pressure (ICD-10-PCS; 2018-12-16)
PROC: 5A09357 Assistance with Respiratory Ventilation, Less than 24 Consecutive Hours, Continuous Positive Airway Pressure (ICD-10-PCS; 2018-12-17)
DX: A41.9 Sepsis, unspecified organism (principal); S72.052A Unspecified fracture of head of left femur, initial encounter for closed fracture; J96.22 Acute and chronic respiratory failure with hypercapnia; I50.33 Acute on chronic diastolic (congestive) heart failure; R65.21 Severe sepsis with septic shock; J44.1 Chronic obstructive pulmonary disease with (acute) exacerbation; E11.9 Type 2 diabetes mellitus without complications; I11.0 Hypertensive heart disease with heart failure; I45.9 Conduction disorder, unspecified; I48.2 Chronic atrial fibrillation; I95.81 Postprocedural hypotension; J84.10 Pulmonary fibrosis, unspecified; T17.990A Other foreign object in respiratory tract, part unspecified in causing asphyxiation, initial encounter; Z79.51 Long term (current) use of inhaled steroids; Z79.52 Long term (current) use of systemic steroids; Z85.46 Personal history of malignant neoplasm of prostate; Z87.891 Personal history of nicotine dependence; Z99.81 Dependence on supplemental oxygen; Z88.0 Allergy status to penicillin; Y93.89 Activity, other specified; Y92.89 Other specified places as the place of occurrence of the external cause; Y99.8 Other external cause status
CPT/HCPCS: 36415; 36600; 71045; 73503; 80048; 80053; 81003; 82435; 82550; 82803; 82947; 82948; 83605; 83735; 83874; 84100; 84132; 84295; 84443; 84484; 85014; 85018; 85025; 85027; 85610; 85730; 86850; 86900; 86901; 87040; 87641; 87804; 88305; 88311; 92610; 93005; 93306; 94640; 94660; 94664; 94667; 94668; 97039; A4344; C1776; G0378; J0330; J0690; J1815; J1885; J1940; J2001; J2175; J2185; J2405; J2704; J2710; J2795; J2920; J2930; J3010; J3370; J3475; J3490; J7120; J7512; J7608

== ENCOUNTER 2019-01-25 09:22 | Emergency (ER) | payer OTHER ==
[~2019-01-25 09:22] MED LIST changes: -ACET325T51 PO; +ACET650S28 PO; +APIX2.5T PO; +IPRA3AMP24 IH; -PRED10TA23 PO; +PRED5TAB PO; +TAMS-1 PO; -TIOT18CA3 IH; +TIOT4MIS5 IH; +TRAM50TA4 PO
[2019-01-25] MEDS ORDERED: IPRATROPIUM/ALBUTEROL SULFATE 3 ML SOLUTION IH ONE (10:07)
[2019-01-25 10:45] LABS: BASOPHILS % (AUTO) 0.8 % (0.0-5.0); EOSINOPHILS % (AUTO) 0.8 % (0.0-8.0); LYMPHOCYTES % (AUTO) 8.3 % (21.0-51.0); MEAN CORPUSCULAR HEMOGLOBIN 31.9 pg (27.0-33.0); MEAN CORPUSCULAR HGB CONC 33.4 g/dL (32.0-36.0); MEAN CORPUSCULAR VOLUME 95.2 fL (79-99); MONOCYTES % (AUTO) 9.3 % (3.0-13.0); NEUTROPHILS % (AUTO) 80.8 % (40.0-77.0); PLATELET COUNT (AUTO) 250 K/uL (130-400); RED BLOOD CELL COUNT(AUTO) 3.99 MIL/uL (4.50-6.20); RED CELL DISTRIBUTION WIDTH 15.4 % (11.0-15.5); WHITE BLOOD COUNT (AUTO) 8.2 K/uL (4.8-10.8)
[2019-01-25] MEDS ORDERED: METHYLPREDNISOLONE SOD SUCC 125MG/2ML VIAL ONE (10:50)
[2019-01-25 10:57] LABS: CREATININE 0.7 mg/dL (0.5-1.5); POTASSIUM 4.7 mmol/L (3.5-5.1)
[2019-01-25 11:04] LABS: ALBUMIN 2.7 g/dL (3.5-5.0); BILIRUBIN,TOTAL 0.4 mg/dL (0.2-1.0)
[2019-01-25 11:08] LABS: INR 1.02 (0.85-1.15); PARTIAL THROMBOPLASTIN TIME 30.3 SEC (26.3-35.5); PROTHROMBIN TIME 10.7 SEC (9.6-11.6)
[2019-01-25 11:24] LABS: B-TYPE NATRIURETIC PEPTIDE 263 pg/mL (0-100)
[2019-01-25] MEDS ORDERED: FUROSEMIDE 10 MG/ML 4ML VIAL ONE (12:16)
[2019-01-25] MEDS ORDERED: AZITHROMYCIN 250 MG TABLET PO ONE (12:17)
== END 2019-01-25 13:05 | disposition home or self-care (01) ==
LOC: EDH 09:22
DX: J44.1 Chronic obstructive pulmonary disease with (acute) exacerbation (principal); I10 Essential (primary) hypertension; K21.9 Gastro-esophageal reflux disease without esophagitis; Z95.1 Presence of aortocoronary bypass graft; Z98.890 Other specified postprocedural states; Z87.891 Personal history of nicotine dependence; Z88.0 Allergy status to penicillin; Z91.013 Allergy to seafood
CPT/HCPCS: 36415; 71046; 80053; 82550; 83880; 84484; 85025; 85610; 85730; 87804 ×2; 93005; 93970; 94640; 96374; 96375; 99284; J1940; J2930

== ENCOUNTER 2019-07-01 23:27 | Emergency (ER) | payer OTHER ==
[2019-07-02 00:15] LABS: BASOPHILS % (AUTO) 0.6 % (0.0-5.0); EOSINOPHILS % (AUTO) 4.4 % (0.0-8.0); HEMATOCRIT 42.4 % (42-54); LYMPHOCYTES % (AUTO) 13.6 % (21.0-51.0); MEAN CORPUSCULAR HGB CONC 32.3 g/dL (32.0-36.0); MEAN CORPUSCULAR VOLUME 92.8 fL (79-99); MONOCYTES % (AUTO) 14.5 % (3.0-13.0); NEUTROPHILS % (AUTO) 66.6 % (40.0-77.0); PLATELET COUNT (AUTO) 268 K/uL (130-400); RED BLOOD CELL COUNT(AUTO) 4.57 MIL/uL (4.50-6.20); RED CELL DISTRIBUTION WIDTH 15.1 % (11.0-15.5); WHITE BLOOD COUNT (AUTO) 6.2 K/uL (4.8-10.8)
[2019-07-02] MEDS ORDERED: METHYLPREDNISOLONE SOD SUCC 125MG/2ML VIAL ONE (00:27)
[2019-07-02] MEDS ORDERED: IPRATROPIUM/ALBUTEROL SULFATE 3 ML SOLUTION IH ONE ×2 (00:33→03:11)
[2019-07-02 00:38] LABS: POTASSIUM 4.1 mmol/L (3.5-5.1)
[2019-07-02 00:41] LABS: PARTIAL THROMBOPLASTIN TIME 29.2 SEC (26.3-35.5); PROTHROMBIN TIME 10.8 SEC (9.6-11.6)
[2019-07-02 00:41] LABS: ALBUMIN 3.1 g/dL (3.5-5.0); BILIRUBIN,TOTAL 0.4 mg/dL (0.2-1.0); TOTAL PROTEIN, SERUM 6.9 g/dL (6.0-8.3)
[2019-07-02 00:44] LABS: B-TYPE NATRIURETIC PEPTIDE 185 pg/mL (0-100)
[2019-07-02 00:46] LABS: ABG HCO3 22.2 mmol/L (21.0-28.0); ABG OXYGEN SATURATION 97.2 % (95.0-99.0); ABG PCO2 36 mmHg (35-48)
[2019-07-02] MEDS ORDERED: LEVOFLOXACIN 500 MG TABLET ONE (03:06)
[2019-07-02 03:46] LABS: CREATINE KINASE, TOTAL 56 U/L (21-232); MYOGLOBIN 43 ng/mL (10-92); TROPONIN I < 0.04 ng/mL (0.00-0.06)
== END 2019-07-02 05:24 | disposition home or self-care (01) ==
LOC: EDH 23:27
DX: J44.1 Chronic obstructive pulmonary disease with (acute) exacerbation (principal)
CPT/HCPCS: 36415; 36600; 71045; 80053; 82550 ×2; 82803; 83605; 83874; 83880; 84484 ×2; 85025; 85610; 85730; 87804 ×2; 93005 ×2; 94640 ×2; 96374; 99285; J2930

== ENCOUNTER 2019-07-05 10:56 | Inpatient (IN) | payer OTHER ==
[~2019-07-05] VITALS: Ht 180.3 cm; Wt 84.4 kg
[2019-07-05 11:41] LABS: BASOPHILS % (AUTO) 0.3 % (0.0-5.0); EOSINOPHILS % (AUTO) 0.1 % (0.0-8.0); HEMATOCRIT 43.5 % (42-54); LYMPHOCYTES % (AUTO) 14.1 % (21.0-51.0); MEAN CORPUSCULAR HEMOGLOBIN 30.2 pg (27.0-33.0); MEAN CORPUSCULAR HGB CONC 32.6 g/dL (32.0-36.0); MEAN CORPUSCULAR VOLUME 92.6 fL (79-99); MONOCYTES % (AUTO) 11.6 % (3.0-13.0); NEUTROPHILS % (AUTO) 72.2 % (40.0-77.0); PLATELET COUNT (AUTO) 309 K/uL (130-400); RED CELL DISTRIBUTION WIDTH 14.8 % (11.0-15.5); WHITE BLOOD COUNT (AUTO) 7.7 K/uL (4.8-10.8)
[2019-07-05 11:54] LABS: CREATININE 0.7 mg/dL (0.5-1.5); INR 1.04 (0.85-1.15); PARTIAL THROMBOPLASTIN TIME 29.9 SEC (26.3-35.5); POTASSIUM 4.3 mmol/L (3.5-5.1); PROTHROMBIN TIME 11.2 SEC (9.6-11.6)
[2019-07-05 12:04] LABS: ALBUMIN 3.2 g/dL (3.5-5.0); BILIRUBIN,TOTAL 0.4 mg/dL (0.2-1.0); TOTAL PROTEIN, SERUM 6.8 g/dL (6.0-8.3)
[2019-07-05 12:20] LABS: APPEARANCE,URINE Clear (CLEAR); BILIRUBIN,URINE Negative (NEGATIVE); COLOR,URINE Yellow (YELLOW); GLUCOSE, URINE (UA) Negative (NEGATIVE); KETONES,URINE Negative (NEGATIVE); LEUKOCYTE ESTERASE ,URINE Negative (NEGATIVE); NITRATE,URINE Negative (NEGATIVE); OCCULT BLOOD,URINE Negative (NEGATIVE); PH,URINE 5.5 (5.0-8.0); PROTEIN,URINE Negative (NEGATIVE); UROBILINOGEN,URINE 0.2 mg/dL (0.2-1.0)
[2019-07-05] MEDS ORDERED: IPRATROPIUM/ALBUTEROL SULFATE 3 ML SOLUTION IH ONE (14:53)
[2019-07-05 15:08] LABS: HEMATOCRIT 40.4 % (42-54)
[2019-07-05] MEDS ORDERED: SODIUM CHLORIDE 0.9% 1000ML 1,000 ML IV ONE (15:54)
[2019-07-05] MEDS: PANTOPRAZOLE SODIUM 40 MG TABLET.DR PO SCH (17:22)
--- NOTE | 2019-07-05 18:47 | NUR ---
Received report from Nurse Bahena in ER. Per Shruti, no consult for GI specialty ordered.
[2019-07-05] MEDS ORDERED: PANTOPRAZOLE SODIUM 40 MG TABLET.DR ONE (18:51)
--- NOTE | 2019-07-05 19:10 | NUR ---
Nursing Note-Admission Pt arrived to floor. Pt put on oxygen at 2Liters. Pt informed me he didn't have his medications with him and he didn't know his meds that he takes. Pt not currently having bloody stool. Pt free of breakdown on bottom. No needs or concerns at this time.
[2019-07-05 20:00] VITALS: BP 146/86
[2019-07-05] MEDS: 1/2 NORMAL SALINE 1,000 ML IV SCH (20:57)
[2019-07-05] MEDS ORDERED: IPRATROPIUM/ALBUTEROL SULFATE 3 ML SOLUTION IH PRN (22:00)
[2019-07-05] MEDS ORDERED: ALBUTEROL INHALER 90MCG/INH IH PRN (22:00)
[2019-07-05] MEDS ORDERED: ALBUTEROL SULFATE 0.083% 2.5 MG/3 ML INH IH PRN (22:45)
[2019-07-06] VITALS: BP 134/81
[2019-07-06] MEDS: 1/2 NORMAL SALINE 1,000 ML IV SCH (03:11)
[2019-07-06 04:00] VITALS: BP 122/78
[2019-07-06 05:56] LABS: HEMATOCRIT 40.5 % (42-54)
--- NOTE | 2019-07-06 07:40 | NUR ---
NOTE AAOX3. DNEIES PAIN OR OTHER DISCOMFORT. REQUESTING TO HAVE NEBULIZER TREATMENT. HE IS ON O2@2LNC HE DOES AT HOME BUT HE TAKES DUONEBS AROUND THE CLOCK, SCHEDULED TIMES BUT HERE HE IS PRN. I WILL CHANGE ORDER. BBS DIMINISHED BUT AIR EXCHANGE CAN BE AUSCULTATED. PATIENT CAME IN WITH DX LOWER GI BLEED. REPORTS HAVING BRIGHT RED BM'S X5 AT HOME BUT HAS NOT BEEN ABLE TO PROVIDE ONE SINCE ADMITTED. WAS INSTRUCTED TO CALL WHEN HE HAS BM AND NOT TO FLUSH TOILET.
[2019-07-06 08:00] VITALS: BP 121/74
[2019-07-06] MEDS: PANTOPRAZOLE SODIUM 40 MG TABLET.DR PO SCH (08:21)
[2019-07-06] MEDS ORDERED: IPRATROPIUM/ALBUTEROL SULFATE 3 ML SOLUTION IH ONE (09:39)
--- NOTE | 2019-07-06 10:30 | NUR ---
DR TYSON SPOKE TO DR TYSON REGARDING CONSULT FOR LOWER GI BLEED. HE RECOMMENDED PATIENT BE SEEN OUTPATIENT IN ONE WEEK AFTER DISCHARGED.I WILL ADVACE DIET ORDERED PER DR ZAPATA AND SEE IF TOLERATES IT.
[2019-07-06 12:00] VITALS: BP 138/80
[2019-07-06] MEDS ORDERED: IPRATROPIUM/ALBUTEROL SULFATE 3 ML SOLUTION IH SCH (12:00)
--- NOTE | 2019-07-06 13:40 | NUR ---
DR ZAPATA SPOKE WITH DR ZAPATA REGARDING WHAT DR TYSON RECOMMENDED AND THE FACT THAT PATIENT HAD DIET ADVANCED AND TOLERATED PLUS HE HAD BM FINALLY AND THERE WAS NO BLOOD NOTED AND H/H HAS REMAINED STABLE THROUGHOUT HIS STAY AND ALSO PATIENT REQUESTING TO LEAVE. DR ZAPATA GAVE ORDERS FOR DISCHARGE TODAY. WILL PROCEED THIS AFTERNOON.
--- NOTE | 2019-07-06 15:23 | NUR ---
NOTE DISCHARGE INSTRUCTIONS GIVEN TO PATIENT AT THIS TIME. REFER TO DC SUMMARY FOR DETAILS.
--- NOTE | 2019-07-06 16:01 | NUR ---
CAITLYN NOTE CM reviewed medical record. No needs identified per chart review. Pt discharged home. Addendum: 07/06/19 at 1602 by ENRIQUE JAIMES CM Amended: Links added.
== END 2019-07-06 15:30 | disposition home or self-care (01) | DRG 378 ==
LOC: EDH 10:56 → EDHIP 16:35 → 3AH 18:51
PROVIDERS: ADMIT Internal Medicine; ATTEND Internal Medicine
DX: K92.2 Gastrointestinal hemorrhage, unspecified (principal); I50.32 Chronic diastolic (congestive) heart failure; E78.5 Hyperlipidemia, unspecified; I11.0 Hypertensive heart disease with heart failure; J44.9 Chronic obstructive pulmonary disease, unspecified; N40.0 Benign prostatic hyperplasia without lower urinary tract symptoms; Z85.46 Personal history of malignant neoplasm of prostate; Z79.01 Long term (current) use of anticoagulants; Z79.899 Other long term (current) drug therapy; Z88.0 Allergy status to penicillin; Z91.013 Allergy to seafood
CPT/HCPCS: 36415; 71045; 74176; 80053; 81003; 82270; 84484; 85014; 85018; 85025; 85610; 85730; 86900; 86901; 93005; 94640; 94664; G0378; J7030

== ENCOUNTER 2020-01-27 05:55 | Observation (INO) | payer OTHER ==
[~2020-01-27] VITALS: Ht 180.3 cm; Wt 78.5 kg
[2020-01-27] VITALS (34 sets, daily range): BP systolic 101–171; BP diastolic 53–95
[~2020-01-27 05:55] MED LIST changes: -APIX2.5T PO
[2020-01-27] MEDS ORDERED: SODIUM CHLORIDE 0.9% 1000ML 1,000 ML IV ONE ×2 (06:13→11:33)
[2020-01-27 06:48] LABS: BASOPHILS % (AUTO) 0.6 % (0.0-5.0); EOSINOPHILS % (AUTO) 3.4 % (0.0-8.0); HEMATOCRIT 43.3 % (42-54); LYMPHOCYTES % (AUTO) 16.2 % (21.0-51.0); MEAN CORPUSCULAR HEMOGLOBIN 29.7 pg (27.0-33.0); MEAN CORPUSCULAR HGB CONC 32.3 g/dL (32.0-36.0); MEAN CORPUSCULAR VOLUME 91.9 fL (79-99); NEUTROPHILS % (AUTO) 69.1 % (40.0-77.0); PLATELET COUNT (AUTO) 218 K/uL (130-400); RED BLOOD CELL COUNT(AUTO) 4.71 MIL/uL (4.50-6.20); RED CELL DISTRIBUTION WIDTH 14.7 % (11.0-15.5); WHITE BLOOD COUNT (AUTO) 6.8 K/uL (4.8-10.8)
[2020-01-27 07:08] LABS: BILIRUBIN,TOTAL 0.5 mg/dL (0.2-1.0); POTASSIUM 3.7 mmol/L (3.5-5.1); TOTAL PROTEIN, SERUM 6.2 g/dL (6.0-8.3)
[2020-01-27] MEDS ORDERED: PROPOFOL 10 MG/ML 20ML VIAL IV ONE ×3 (07:37→07:55)
[2020-01-27] MEDS ORDERED: GLYCOPYRROLATE 1 MG/5 ML SYRINGE ONE (07:39)
--- NOTE | 2020-01-27 08:45 | NUR ---
Update Patient dressed in clothes, IV dc'd, sat in wheelchair. shown where to the exit and when returning to the Gi recovery area, patient was winded and shaking his albuterol inhaler in order to use it. Patient state he did not feel well and was experiencing epigastric pain. Cristopher Clements RN notified, she stated she would send the LEAF STRIPPER.
[2020-01-27] MEDS ORDERED: NITROGLYCERIN 1GM/1 INCH PACKET TD ONE (09:04)
[2020-01-27] MEDS ORDERED: MORPHINE SULFATE 2 MG/ML 1ML SYG IM ONE (09:10)
[2020-01-27] MEDS ORDERED: MORPHINE SULFATE 2 MG/ML 1ML SYG ONE (09:15)
[2020-01-27] MEDS ORDERED: FENTANYL CITRATE PF 50 MCG/1 ML 2ML VIAL ONE (09:22)
--- NOTE | 2020-01-27 09:30 | NUR ---
UPDATE Patient back from CT of the abdomen.
[2020-01-27] MEDS ORDERED: NITROGLYCERIN 0.4 MG SL TAB SL ONE (09:37)
--- NOTE | 2020-01-27 10:00 | NUR ---
Update Dr. Peralta in to see the patient.
[2020-01-27 10:19] LABS: CREATINE KINASE, TOTAL 57 U/L (21-232); LIPASE 90 U/L (114-286); MYOGLOBIN 86 ng/mL (10-92); TROPONIN I < 0.04 ng/mL (0.00-0.06)
[2020-01-27] MEDS ORDERED: HYDROMORPHONE HCL 2 MG/ML VIAL IVP PRN (12:00)
--- NOTE | 2020-01-27 12:25 | NUR ---
Update Dr. Narayan notified that the patient was going to be admitted by Dr. Peralta but MILAGROS Arevalo noticed that the patient belonged to him and wanted me to ask if he wanted to see the patient or the hospitalist would. Dr. Narayan said he would see the patient, see orders.
[2020-01-27] MEDS ORDERED: HYDROMORPHONE HCL 0.5 MG/0.5 ML ML IVP PRN (12:30)
[2020-01-27] MEDS ORDERED: ACETAMINOPHEN ELIXIR 650 MG/20.3 ML UDCUP PO PRN (12:45)
[2020-01-27] MEDS ORDERED: FUROSEMIDE 20 MG TABLET PO PRN (12:45)
[2020-01-27] MEDS ORDERED: ALBUTEROL INHALER 90MCG/INH IH PRN (13:00)
[2020-01-27] MEDS ORDERED: Tiotropium Bromide (Spiriva Respimat) IH PRN (13:00)
--- NOTE | 2020-01-27 13:11 | NUR ---
Update Report given to EMBER Garzon from 3rd floor.
--- NOTE | 2020-01-27 13:12 | NUR ---
REPORT RECEIVED FROM DAY PATIENT , PATIENT HAD A PROCEDURE TODAY WITH DR RUIZ, WAS GOING TO BE DISCHARGE BUT STARTED HAVING ABDOMINAL PAIN AND SOB. PATIENT BEING ADMITTED UNDER DR DEE . PATIENT TO BE ADMITTED TO ROOM 315
--- NOTE | 2020-01-27 13:12 | NUR ---
Update Patient stood at the side of the bed to use the urinal. After sitting to the side of the bed to catch his breath, he then laid down and got winded again and asked for a nebulizer treatment. RT notifed.
[2020-01-27] MEDS ORDERED: NITROGLYCERIN 0.2 MG/HR PATCH TD SCH (13:15)
[2020-01-27] MEDS: IPRATROPIUM/ALBUTEROL SULFATE 3 ML SOLUTION IH PRN (13:22)
[2020-01-27] MEDS: TRAMADOL HCL 50 MG TABLET PO PRN (17:17)
[2020-01-27] MEDS ORDERED: Brimonidine Tartrate/Timolol (Combigan Eye Drops) 1 DROP OP SCH (21:00)
[2020-01-27] MEDS ORDERED: TAMSULOSIN HCL 0.4 MG CAP.ER.24H PO SCH (21:00)
[2020-01-28] VITALS: BP 98/61
[2020-01-28] MEDS: TRAMADOL HCL 50 MG TABLET PO PRN (00:49)
[2020-01-28] MEDS: IPRATROPIUM/ALBUTEROL SULFATE 3 ML SOLUTION IH PRN ×2 (01:05→06:41)
[2020-01-28 04:00] VITALS: BP 125/74
[2020-01-28 05:03] LABS: HEMATOCRIT 39.5 % (42-54); MEAN CORPUSCULAR HEMOGLOBIN 29.6 pg (27.0-33.0); MEAN CORPUSCULAR HGB CONC 32.7 g/dL (32.0-36.0); MEAN CORPUSCULAR VOLUME 90.6 fL (79-99); RED BLOOD CELL COUNT(AUTO) 4.36 MIL/uL (4.50-6.20); RED CELL DISTRIBUTION WIDTH 14.8 % (11.0-15.5); WHITE BLOOD COUNT (AUTO) 8.2 K/uL (4.8-10.8)
[2020-01-28 05:27] LABS: ALBUMIN 2.6 g/dL (3.5-5.0); BILIRUBIN,TOTAL 0.8 mg/dL (0.2-1.0); CREATININE 0.7 mg/dL (0.5-1.5); POTASSIUM 3.5 mmol/L (3.5-5.1); TOTAL PROTEIN, SERUM 5.6 g/dL (6.0-8.3)
--- NOTE | 2020-01-28 05:45 | NUR ---
Helene PARKER rounded: Visited and talked with pt. Pt. verbalized he's ok. Helene PARKER ordered discharge pt to home and continue home medications.
[2020-01-28 07:30] VITALS: BP 128/67
[2020-01-28] MEDS ORDERED: PREDNISONE 5 MG TABLET PO SCH (09:00)
[2020-01-28] MEDS ORDERED: FLUTICASONE/VILANTEROL 1 EACH AER.POW.BA IH SCH (09:00)
== END 2020-01-28 09:20 | disposition home or self-care (01) ==
LOC: DAH 05:55 → ENDO 05:55 → 3CH 05:56
PROVIDERS: ADMIT Internal Medicine; ATTEND Internal Medicine
DX: R10.9 Unspecified abdominal pain (principal); Z20.828 Contact with and (suspected) exposure to other viral communicable diseases; J44.9 Chronic obstructive pulmonary disease, unspecified; I10 Essential (primary) hypertension; R93.3 Abnormal findings on diagnostic imaging of other parts of digestive tract
CPT/HCPCS: 36415 ×3; 43238; 74150; 80053 ×2; 82550; 83690 ×3; 83874; 84484; 85025; 85027; 87040 ×2; 93005; 94640 ×3; 94664; 96361; 96374; A4215; A4221; A4222; A4223 ×2; A4606; A4620; A4663; C9803; G0378 ×20; J1170; J2704 ×3; J3010; J3490; J7030 ×2; U0003

== ENCOUNTER → 2020-09-22 | Outpatient (CLI) | payer OTHER | END | disposition home or self-care (01) | LOC: SHCH 07:33 | PROVIDERS: ATTEND Internal Medicine Cardiovascular Disease | DX: I71.4 Abdominal aortic aneurysm, without rupture (principal) | CPT/HCPCS: 93978 ==

== ENCOUNTER → 2020-10-15 | Outpatient (CLI) | payer OTHER | END | disposition home or self-care (01) | LOC: RAH 10-14 10:31 | PROVIDERS: ATTEND Internal Medicine Endocrinology, Diabetes & Metabolism | DX: E04.2 Nontoxic multinodular goiter (principal); E05.00 Thyrotoxicosis with diffuse goiter without thyrotoxic crisis or storm | CPT/HCPCS: 78014; A9516 ==

== ENCOUNTER → 2021-02-04 | Outpatient (CLI) | payer OTHER ==
[~2021-02-04] MED LIST changes: -ACET650S28 PO; -ALBUHFA IH; -BRIM5DRO OP; +BRIM5DRO4 OP; +DORZ10DR19 OP; -FLUT1AER IH; +FLUT1BLS3 PO; -FURO20TA4 PO; +LATA7.5D OP; -PRED5TAB PO; -TAMS-1 PO; -TIOT4MIS5 IH; -TRAM50TA4 PO
== END | disposition home or self-care (01) ==
LOC: RAH 09:52
PROVIDERS: ATTEND Family Medicine
DX: M47.812 Spondylosis without myelopathy or radiculopathy, cervical region (principal)
CPT/HCPCS: 72125

== ENCOUNTER 2021-02-10 07:13 | Emergency (ER) | payer OTHER ==
[~2021-02-10] VITALS: Ht 180.3 cm; Wt 78.0 kg
[2021-02-10] MEDS ORDERED: ONDANSETRON 4MG INJ ONE (07:38)
[2021-02-10] MEDS ORDERED: MORPHINE 4 MG SYG ONE (07:40)
[2021-02-10] MEDS ORDERED: MORPHINE 4 MG SYG IVP ONE (08:00)
[2021-02-10] MEDS ORDERED: ONDANSETRON 4MG INJ IVP ONE (08:00)
[2021-02-10 08:40] LABS: BASOPHILS % (AUTO) 0.3 % (0.0-5.0); EOSINOPHILS % (AUTO) 0.9 % (0.0-8.0); HEMATOCRIT 39.1 % (42-54); LYMPHOCYTES % (AUTO) 10.1 % (21.0-51.0); MEAN CORPUSCULAR HEMOGLOBIN 30.8 pg (27.0-33.0); MEAN CORPUSCULAR HGB CONC 32.7 g/dL (32.0-36.0); MEAN CORPUSCULAR VOLUME 94.2 fL (79-99); NEUTROPHILS % (AUTO) 77.5 % (40.0-77.0); PLATELET COUNT (AUTO) 166 K/uL (130-400); RED BLOOD CELL COUNT(AUTO) 4.15 MIL/uL (4.50-6.20); RED CELL DISTRIBUTION WIDTH 15.7 % (11.0-15.5); WHITE BLOOD COUNT (AUTO) 7.4 K/uL (4.8-10.8)
[2021-02-10 08:48] LABS: CREATININE 0.9 mg/dL (0.5-1.5); POTASSIUM 3.7 mmol/L (3.5-5.1)
[2021-02-10 08:53] LABS: ALBUMIN 2.7 g/dL (3.5-5.0); BILIRUBIN,TOTAL 0.6 mg/dL (0.2-1.0); TOTAL PROTEIN, SERUM 5.8 g/dL (6.0-8.3)
[2021-02-10] MEDS ORDERED: IOHEXOL 350 MG/ML 100ML INFUS..BTL IV ONE (10:01)
[2021-02-10] MEDS ORDERED: KETOROLAC 30MG VIAL (30MG/ML) IV ONE (11:00)
[2021-02-10] MEDS ORDERED: KETOROLAC 15MG/ML VIAL (15MG/ML) IV ONE (11:00)
[2021-02-10] MEDS ORDERED: IBUP-2070 PO (14:35)
[2021-02-10] MEDS ORDERED: ACET1TAB25 PO (14:35)
[2021-02-10 15:03] VITALS: BP 151/80
== END 2021-02-10 15:06 | disposition home or self-care (01) ==
LOC: EDH 07:13
DX: M54.50 Low back pain, unspecified (principal); J44.9 Chronic obstructive pulmonary disease, unspecified; M19.90 Unspecified osteoarthritis, unspecified site; Z85.46 Personal history of malignant neoplasm of prostate; Z88.0 Allergy status to penicillin; Z79.1 Long term (current) use of non-steroidal anti-inflammatories (NSAID); Z79.899 Other long term (current) drug therapy
CPT/HCPCS: 36415; 72131; 74174; 80053; 85025; 96374; 96375; 99285; J1885; J2270; J2405; Q9967

== ENCOUNTER → 2021-03-23 | Outpatient (CLI) | payer OTHER ==
[~2021-03-23] MED LIST changes: +ACET1TAB25 PO; +IBUP-2070 PO
== END | disposition home or self-care (01) ==
LOC: OIH 09:33
PROVIDERS: ATTEND Internal Medicine
DX: S32.040A Wedge compression fracture of fourth lumbar vertebra, initial encounter for closed fracture (principal); S32.020A Wedge compression fracture of second lumbar vertebra, initial encounter for closed fracture; X58.XXXA Exposure to other specified factors, initial encounter; Y93.89 Activity, other specified; Y92.89 Other specified places as the place of occurrence of the external cause; Y99.8 Other external cause status
CPT/HCPCS: 72100

== ENCOUNTER 2021-04-15 12:57 | Emergency (ER) | payer OTHER ==
[~2021-04-15] VITALS: Ht 180.3 cm; Wt 77.1 kg
[2021-04-15 14:01] LABS: BASOPHILS % (AUTO) 0.3 % (0.0-5.0); EOSINOPHILS % (AUTO) 0.4 % (0.0-8.0); HEMATOCRIT 46.1 % (42-54); MEAN CORPUSCULAR HEMOGLOBIN 30.2 pg (27.0-33.0); MEAN CORPUSCULAR HGB CONC 31.7 g/dL (32.0-36.0); MEAN CORPUSCULAR VOLUME 95.4 fL (79-99); MONOCYTES % (AUTO) 11.3 % (3.0-13.0); NEUTROPHILS % (AUTO) 75.3 % (40.0-77.0); PLATELET COUNT (AUTO) 206 K/uL (130-400); RED BLOOD CELL COUNT(AUTO) 4.83 MIL/uL (4.50-6.20); RED CELL DISTRIBUTION WIDTH 15.2 % (11.0-15.5)
[2021-04-15 14:12] LABS: CREATININE 0.8 mg/dL (0.5-1.5); POTASSIUM 4.3 mmol/L (3.5-5.1)
[2021-04-15 14:16] LABS: BILIRUBIN,TOTAL 0.3 mg/dL (0.2-1.0); TOTAL PROTEIN, SERUM 6.1 g/dL (6.0-8.3)
[2021-04-15] MEDS ORDERED: IPRATROPIUM/ALBUTEROL SULFATE 3 ML SOLUTION IH ONE (14:30)
[2021-04-15] MEDS ORDERED: 0.9%NACL 1000ML 1,000 ML IV SCH (15:00)
[2021-04-15] MEDS ORDERED: IOHEXOL-350 75 ML VIAL IV ONE (15:03)
[2021-04-15 15:16] VITALS: BP 153/114
[2021-04-15] MEDS ORDERED: CEFTRIAXONE 1G VIAL IVP ONE (16:00)
[2021-04-15] MEDS ORDERED: SOLU-MEDROL 40MG VIAL IVP SCH (16:00)
== END 2021-04-15 16:46 | disposition home or self-care (01) ==
LOC: EDH 12:57
DX: U07.1 COVID-19 (principal); J44.1 Chronic obstructive pulmonary disease with (acute) exacerbation; E86.1 Hypovolemia; Z96.649 Presence of unspecified artificial hip joint; Z88.0 Allergy status to penicillin; Z91.013 Allergy to seafood; Z79.899 Other long term (current) drug therapy
CPT/HCPCS: 36415; 71045; 71275; 80053; 83605; 83880; 84484; 85025; 85378; 87040 ×2; 93005; 94640; 96360; 99284; J7030; Q9967

== ENCOUNTER 2021-04-21 10:50 | Inpatient (IN) | payer OTHER ==
[~2021-04-21] VITALS: Ht 180.3 cm; Wt 70.5 kg
[2021-04-21 13:54] LABS: BASOPHILS % (AUTO) 0.1 % (0.0-5.0); EOSINOPHILS % (AUTO) 0.1 % (0.0-8.0); HEMATOCRIT 43.2 % (42-54); LYMPHOCYTES % (AUTO) 4.9 % (21.0-51.0); MEAN CORPUSCULAR HEMOGLOBIN 29.7 pg (27.0-33.0); MEAN CORPUSCULAR HGB CONC 32.4 g/dL (32.0-36.0); MEAN CORPUSCULAR VOLUME 91.7 fL (79-99); MONOCYTES % (AUTO) 3.2 % (3.0-13.0); NEUTROPHILS % (AUTO) 90.8 % (40.0-77.0); PLATELET COUNT (AUTO) 140 K/uL (130-400); RED BLOOD CELL COUNT(AUTO) 4.71 MIL/uL (4.50-6.20); WHITE BLOOD COUNT (AUTO) 10.7 K/uL (4.8-10.8)
[2021-04-21] MEDS ORDERED: DEXAMETHASONE SOD PHOSPHATE 4 MG/ML 1ML VIAL IVP ONE (14:00)
[2021-04-21] MEDS ORDERED: AZITHROMYCIN 250 MG TABLET PO ONE ×2 (14:00→15:28)
[2021-04-21] MEDS: CEFTRIAXONE 1G VIAL IVP SCH (14:00)
[2021-04-21 14:07] LABS: ALBUMIN 2.6 g/dL (3.5-5.0); BILIRUBIN,TOTAL 0.6 mg/dL (0.2-1.0); CRP QUANTITATIVE 175.9 mg/L (0.00-9.0)
[2021-04-21 14:32] LABS: B-TYPE NATRIURETIC PEPTIDE 155 pg/mL (0-100)
[2021-04-21] MEDS ORDERED: CEFTRIAXONE 1G VIAL ONE (15:27)
[2021-04-21] MEDS ORDERED: DEXAMETHASONE SOD PHOSPHATE 10MG/ML 1ML VIAL ONE (15:27)
[2021-04-21] MEDS ORDERED: IPRATROPIUM/ALBUTEROL SULFATE 3 ML SOLUTION IH PRN (16:00)
[2021-04-21] MEDS ORDERED: IPRATROPIUM/ALBUTEROL SULFATE 3 ML SOLUTION IH SCH (16:00)
[2021-04-21] MEDS: DEXAMETHASONE SOD PHOSPHATE 4 MG/ML 1ML VIAL IVP SCH (17:00)
[2021-04-21 17:24] LABS: ABG BASE EXCESS -3.9 mmol/L (-2.0-3.0); ABG OXYGEN SATURATION 93.3 % (95.0-99.0); ABG PCO2 29 mmHg (35-48)
[2021-04-21] MEDS ORDERED: ALBUTEROL INHALER 90MCG/INH IH ONE (17:26)
[2021-04-21 20:01] LABS: APPEARANCE,URINE Clear (CLEAR); BILIRUBIN,URINE Negative (NEGATIVE); COLOR,URINE Yellow (YELLOW); GLUCOSE, URINE (UA) Negative (NEGATIVE); KETONES,URINE 15 mg/dL (NEGATIVE); LEUKOCYTE ESTERASE ,URINE Negative (NEGATIVE); NITRATE,URINE Negative (NEGATIVE); OCCULT BLOOD,URINE Negative (NEGATIVE); PH,URINE 5.5 (5.0-8.0); PROTEIN,URINE POS 1+ mg/dL (NEGATIVE)
[2021-04-21 20:21] LABS: HYALINE CASTS, URINE 0-1 /LPF (0-1 /LPF); MUCUS,URINE Rare LPF (None Seen); SQUAMOUS EPITHELIAL CELL,UR 0-2 /HPF (0-2)
[2021-04-21 20:23] LABS: RBC,URINE 0-1 /HPF (0-1); WBC,URINE 0-1 /HPF (0-1)
[2021-04-21 20:24] LABS: BACTERIA,URINE Rare /HPF (None Seen)
[2021-04-21] MEDS: BENZONATATE 100 MG CAPSULE PO SCH (20:30)
[2021-04-21] MEDS: ENOXAPARIN SODIUM 80 MG/0.8 ML SQ SCH (20:39)
[2021-04-21] MEDS ORDERED: SOLU-MEDROL 40MG VIAL IVP SCH (21:00)
[2021-04-21] MEDS: ALBUTEROL INHALER 90MCG/INH IH SCH (21:59)
[2021-04-22] MEDS: BENZONATATE 100 MG CAPSULE PO SCH ×3 (02:58→17:00)
[2021-04-22] MEDS: ALBUTEROL INHALER 90MCG/INH IH SCH ×3 (06:43→23:51)
[2021-04-22 06:55] LABS: HEMATOCRIT 46.3 % (42-54); MEAN CORPUSCULAR HEMOGLOBIN 29.4 pg (27.0-33.0); MEAN CORPUSCULAR HGB CONC 32.2 g/dL (32.0-36.0); MEAN CORPUSCULAR VOLUME 91.5 fL (79-99); RED BLOOD CELL COUNT(AUTO) 5.06 MIL/uL (4.50-6.20); RED CELL DISTRIBUTION WIDTH 15.1 % (11.0-15.5); WHITE BLOOD COUNT (AUTO) 8.2 K/uL (4.8-10.8)
[2021-04-22] MEDS ORDERED: IBUP-14 PO (07:03)
[2021-04-22 07:11] LABS: ALBUMIN 2.4 g/dL (3.5-5.0); BILIRUBIN,TOTAL 0.4 mg/dL (0.2-1.0); CREATININE 0.9 mg/dL (0.5-1.5); POTASSIUM 5.4 mmol/L (3.5-5.1); TOTAL PROTEIN, SERUM 6.3 g/dL (6.0-8.3)
[2021-04-22 07:52] LABS: CRP QUANTITATIVE 217.6 mg/L (0.00-9.0)
[2021-04-22] MEDS ORDERED: ENOXAPARIN SODIUM 40 MG/0.4 ML SYRINGE SQ SCH (09:00)
[2021-04-22] MEDS: LEVOFLOXACIN 750 MG/D5W 150 ML 150 ML IV SCH (10:12)
[2021-04-22] MEDS: PANTOPRAZOLE 40 MG/VIAL IVP SCH (10:12)
[2021-04-22] MEDS: ENOXAPARIN SODIUM 80 MG/0.8 ML SQ SCH ×2 (10:12→20:19)
[2021-04-22] MEDS ORDERED: PRED10TA3 PO (12:16)
[2021-04-22] MEDS: CEFTRIAXONE 1G VIAL IVP SCH (14:20)
[2021-04-22] MEDS: DEXAMETHASONE SOD PHOSPHATE 4 MG/ML 1ML VIAL IVP SCH (17:02)
[2021-04-23] MEDS: BENZONATATE 100 MG CAPSULE PO SCH ×3 (01:00→17:33)
[2021-04-23] MEDS: ALBUTEROL INHALER 90MCG/INH IH SCH ×3 (06:22→21:12)
[2021-04-23 06:49] LABS: ALBUMIN 2.3 g/dL (3.5-5.0); BILIRUBIN,TOTAL 0.4 mg/dL (0.2-1.0); CREATININE 0.8 mg/dL (0.5-1.5); CRP QUANTITATIVE 89.2 mg/L (0.00-9.0); TOTAL PROTEIN, SERUM 6.1 g/dL (6.0-8.3)
[2021-04-23] MEDS: LEVOFLOXACIN 750 MG/D5W 150 ML 150 ML IV SCH (09:33)
[2021-04-23] MEDS: PANTOPRAZOLE 40 MG/VIAL IVP SCH (09:33)
[2021-04-23] MEDS: ENOXAPARIN SODIUM 80 MG/0.8 ML SQ SCH ×2 (09:34→21:11)
[2021-04-23] MEDS: ACETAMINOPHEN 325 MG TAB PO PRN (10:09)
[2021-04-23] MEDS: CEFTRIAXONE 1G VIAL IVP SCH (14:00)
[2021-04-23] MEDS: IBUPROFEN 200 MG TAB PO PRN (16:58)
[2021-04-23 18:00] VITALS: BP 141/75
[2021-04-23] MEDS: DEXAMETHASONE SOD PHOSPHATE 4 MG/ML 1ML VIAL IVP SCH (18:00)
[2021-04-23 20:02] VITALS: BP 144/86
[2021-04-24] VITALS: BP 135/69
[2021-04-24] MEDS: BENZONATATE 100 MG CAPSULE PO SCH (01:00)
[2021-04-24 04:00] VITALS: BP 157/73
[2021-04-24 04:06] LABS: ALBUMIN 2.3 g/dL (3.5-5.0); BILIRUBIN,TOTAL 0.4 mg/dL (0.2-1.0); CREATININE 0.8 mg/dL (0.5-1.5); CRP QUANTITATIVE 31.7 mg/L (0.00-9.0); POTASSIUM 4.8 mmol/L (3.5-5.1); TOTAL PROTEIN, SERUM 5.9 g/dL (6.0-8.3)
[2021-04-24] MEDS: ALBUTEROL INHALER 90MCG/INH IH SCH ×3 (06:22→22:00)
[2021-04-24] MEDS: ACETAMINOPHEN 325 MG TAB PO PRN (06:27)
[2021-04-24 07:30] VITALS: BP 125/57
[2021-04-24] MEDS ORDERED: MORPHINE 2 MG SYG IVP PRN (08:00)
[2021-04-24] MEDS: LEVOFLOXACIN 750 MG/D5W 150 ML 150 ML IV SCH (09:23)
[2021-04-24] MEDS: PANTOPRAZOLE 40 MG/VIAL IVP SCH ×2 (09:23→21:43)
[2021-04-24] MEDS: ENOXAPARIN SODIUM 80 MG/0.8 ML SQ SCH (09:23)
[2021-04-24] MEDS: HYDROCODONE/ACETAMINOPHEN 5/325 MG TAB PO PRN (09:58)
[2021-04-24 11:30] VITALS: BP 116/72
[2021-04-24] MEDS: CEFTRIAXONE 1G VIAL IVP SCH (14:00)
[2021-04-24] MEDS: DEXAMETHASONE SOD PHOSPHATE 4 MG/ML 1ML VIAL IVP SCH (16:52)
[2021-04-24 17:11] VITALS: BP 111/66
[2021-04-24 20:10] VITALS: BP 127/76
[2021-04-25] VITALS (7 sets, daily range): BP systolic 111–149; BP diastolic 58–80
[2021-04-25] MEDS: ALBUTEROL INHALER 90MCG/INH IH SCH ×3 (05:42→22:00)
[2021-04-25] MEDS: LEVOFLOXACIN 750 MG/D5W 150 ML 150 ML IV SCH (10:06)
[2021-04-25] MEDS: PANTOPRAZOLE 40 MG/VIAL IVP SCH ×2 (10:06→20:47)
[2021-04-25] MEDS: GUAIFENESIN-CODEINE 5 ML SYRUP PO PRN (10:07)
[2021-04-25] MEDS: HYDROCODONE/ACETAMINOPHEN 5/325 MG TAB PO PRN (10:12)
[2021-04-25] MEDS ORDERED: CEFTRIAXONE 2GM VIAL ONE (17:51)
[2021-04-25] MEDS: DEXAMETHASONE SOD PHOSPHATE 4 MG/ML 1ML VIAL IVP SCH (18:24)
[2021-04-25] MEDS: CEFTRIAXONE 2GM VIAL IVP SCH (19:32)
[2021-04-25 20:19] LABS: ABG BASE EXCESS -0.8 mmol/L (-2.0-3.0); ABG HCO3 21.7 mmol/L (21.0-28.0); ABG OXYGEN SATURATION 95.6 % (95.0-99.0); ABG PCO2 30 mmHg (35-48)
[2021-04-25 20:22] LABS: BASOPHILS % (AUTO) 0.3 % (0.0-5.0); HEMATOCRIT 41.7 % (42-54); LYMPHOCYTES % (AUTO) 2.6 % (21.0-51.0); MEAN CORPUSCULAR HEMOGLOBIN 29.1 pg (27.0-33.0); MEAN CORPUSCULAR HGB CONC 33.1 g/dL (32.0-36.0); MEAN CORPUSCULAR VOLUME 87.8 fL (79-99); MONOCYTES % (AUTO) 5.6 % (3.0-13.0); NEUTROPHILS % (AUTO) 89.1 % (40.0-77.0); PLATELET COUNT (AUTO) 211 K/uL (130-400); RED BLOOD CELL COUNT(AUTO) 4.75 MIL/uL (4.50-6.20); RED CELL DISTRIBUTION WIDTH 14.5 % (11.0-15.5); WHITE BLOOD COUNT (AUTO) 11.9 K/uL (4.8-10.8)
[2021-04-25 20:35] LABS: INR 1.07 (0.85-1.15); PROTHROMBIN TIME 11.6 SEC (9.6-11.6)
[2021-04-25 20:37] LABS: PARTIAL THROMBOPLASTIN TIME 28.7 SEC (26.3-35.5)
[2021-04-25 20:39] LABS: ALBUMIN 2.3 g/dL (3.5-5.0); BILIRUBIN,TOTAL 0.4 mg/dL (0.2-1.0); CREATININE 0.7 mg/dL (0.5-1.5); MAGNESIUM 2.3 mg/dL (1.80-2.40); POTASSIUM 4.9 mmol/L (3.5-5.1); TOTAL PROTEIN, SERUM 5.6 g/dL (6.0-8.3)
[2021-04-26 04:16] VITALS: BP 126/80
[2021-04-26 04:58] LABS: BASOPHILS % (AUTO) 0.5 % (0.0-5.0); HEMATOCRIT 42.1 % (42-54); LYMPHOCYTES % (AUTO) 4.3 % (21.0-51.0); MEAN CORPUSCULAR HEMOGLOBIN 30.1 pg (27.0-33.0); MEAN CORPUSCULAR HGB CONC 33.3 g/dL (32.0-36.0); MEAN CORPUSCULAR VOLUME 90.5 fL (79-99); NEUTROPHILS % (AUTO) 88.4 % (40.0-77.0); PLATELET COUNT (AUTO) 189 K/uL (130-400); RED BLOOD CELL COUNT(AUTO) 4.65 MIL/uL (4.50-6.20); RED CELL DISTRIBUTION WIDTH 14.6 % (11.0-15.5); WHITE BLOOD COUNT (AUTO) 6.5 K/uL (4.8-10.8)
[2021-04-26 05:23] LABS: ALBUMIN 2.3 g/dL (3.5-5.0); BILIRUBIN,TOTAL 0.4 mg/dL (0.2-1.0); CREATININE 0.7 mg/dL (0.5-1.5); POTASSIUM 4.9 mmol/L (3.5-5.1); TOTAL PROTEIN, SERUM 5.7 g/dL (6.0-8.3)
[2021-04-26] MEDS: ALBUTEROL INHALER 90MCG/INH IH SCH ×3 (06:00→22:06)
[2021-04-26 08:55] VITALS: BP 138/80
[2021-04-26] MEDS ORDERED: ENOXAPARIN SODIUM 40 MG/0.4 ML SYRINGE SQ SCH (09:00)
[2021-04-26] MEDS: PANTOPRAZOLE 40 MG/VIAL IVP SCH ×2 (09:48→21:06)
[2021-04-26] MEDS: GUAIFENESIN-CODEINE 5 ML SYRUP PO PRN (10:27)
[2021-04-26 12:54] VITALS: BP 128/69
[2021-04-26] MEDS ORDERED: CEFTRIAXONE 2GM VIAL IVP SCH (14:00)
[2021-04-26] MEDS: FUROSEMIDE 20MG VIAL IV SCH (14:43)
[2021-04-26 16:34] VITALS: BP 105/65
[2021-04-26] MEDS: DEXAMETHASONE SOD PHOSPHATE 4 MG/ML 1ML VIAL IVP SCH (17:02)
[2021-04-26] MEDS: ACETAMINOPHEN 325 MG TAB PO PRN (17:03)
[2021-04-26 19:32] VITALS: BP 102/63
[2021-04-26] MEDS: CEFTRIAXONE 2GM VIAL IVP SCH (21:06)
[2021-04-26 23:36] VITALS: BP 93/56
[2021-04-27] MEDS: FUROSEMIDE 20MG VIAL IV SCH ×2 (03:18→14:59)
[2021-04-27 03:48] VITALS: BP 106/86
[2021-04-27 04:22] LABS: BASOPHILS % (AUTO) 0.3 % (0.0-5.0); HEMATOCRIT 42.8 % (42-54); LYMPHOCYTES % (AUTO) 4.8 % (21.0-51.0); MEAN CORPUSCULAR HEMOGLOBIN 29.5 pg (27.0-33.0); MEAN CORPUSCULAR HGB CONC 32.9 g/dL (32.0-36.0); MEAN CORPUSCULAR VOLUME 89.5 fL (79-99); MONOCYTES % (AUTO) 5.3 % (3.0-13.0); NEUTROPHILS % (AUTO) 84.9 % (40.0-77.0); PLATELET COUNT (AUTO) 199 K/uL (130-400); RED BLOOD CELL COUNT(AUTO) 4.78 MIL/uL (4.50-6.20); RED CELL DISTRIBUTION WIDTH 14.6 % (11.0-15.5); WHITE BLOOD COUNT (AUTO) 7.5 K/uL (4.8-10.8)
[2021-04-27 04:42] LABS: ALBUMIN 2.4 g/dL (3.5-5.0); BILIRUBIN,TOTAL 0.4 mg/dL (0.2-1.0); CREATININE 0.8 mg/dL (0.5-1.5); POTASSIUM 4.7 mmol/L (3.5-5.1); TOTAL PROTEIN, SERUM 5.9 g/dL (6.0-8.3)
[2021-04-27 04:51] LABS: ABG BASE EXCESS -0.8 mmol/L (-2.0-3.0); ABG HCO3 21.6 mmol/L (21.0-28.0); ABG OXYGEN SATURATION 93.3 % (95.0-99.0); ABG PCO2 30 mmHg (35-48)
[2021-04-27] MEDS: ALBUTEROL INHALER 90MCG/INH IH SCH ×3 (06:06→21:19)
[2021-04-27 08:36] VITALS: BP 117/75
[2021-04-27] MEDS: PANTOPRAZOLE 40 MG/VIAL IVP SCH ×2 (08:59→21:18)
[2021-04-27] MEDS: ENOXAPARIN SODIUM 40 MG/0.4 ML SYRINGE SQ SCH ×2 (08:59→21:18)
[2021-04-27] MEDS: GUAIFENESIN-CODEINE 5 ML SYRUP PO PRN (09:07)
[2021-04-27 12:26] VITALS: BP 111/69
[2021-04-27] MEDS: DEXAMETHASONE SOD PHOSPHATE 4 MG/ML 1ML VIAL IVP SCH (16:27)
[2021-04-27 16:30] VITALS: BP 100/77
[2021-04-27 19:00] VITALS: BP 111/73
[2021-04-27] MEDS: CEFTRIAXONE 2GM VIAL IVP SCH (21:18)
[2021-04-27 23:30] VITALS: BP 93/55
[2021-04-28] MEDS: FUROSEMIDE 20MG VIAL IV SCH (02:24)
[2021-04-28 04:00] VITALS: BP 111/71
[2021-04-28 04:21] LABS: CREATININE 0.9 mg/dL (0.5-1.5); CRP QUANTITATIVE 30.7 mg/L (0.00-9.0); POTASSIUM 4.4 mmol/L (3.5-5.1)
[2021-04-28] MEDS: ALBUTEROL INHALER 90MCG/INH IH SCH ×4 (05:45→22:00)
[2021-04-28 07:00] VITALS: BP 128/83
[2021-04-28] MEDS: PANTOPRAZOLE 40 MG/VIAL IVP SCH ×2 (08:23→20:31)
[2021-04-28] MEDS: ENOXAPARIN SODIUM 40 MG/0.4 ML SYRINGE SQ SCH ×2 (08:23→20:31)
[2021-04-28 11:00] VITALS: BP 115/54
[2021-04-28] MEDS ORDERED: BENZOCAINE/MENTH/CETYLPYRD CL 1 EACH LOZENGE MM PRN (12:30)
[2021-04-28] MEDS: NYSTATIN 100000 UNIT/ML 5ML UDCUP PO SCH ×3 (12:59→20:31)
[2021-04-28] MEDS: DEXAMETHASONE 4 MG TAB PO SCH (13:04)
[2021-04-28 15:00] VITALS: BP 91/65
[2021-04-28 19:57] VITALS: BP 120/68
[2021-04-28] MEDS: GUAIFENESIN-CODEINE 5 ML SYRUP PO PRN (20:29)
[2021-04-28] MEDS: CEFTRIAXONE 2GM VIAL IVP SCH (20:31)
[2021-04-28 23:05] VITALS: BP 98/58
[2021-04-29 03:30] VITALS: BP 119/77
[2021-04-29 05:14] LABS: HEMATOCRIT 42.3 % (42-54); MEAN CORPUSCULAR HEMOGLOBIN 29.5 pg (27.0-33.0); MEAN CORPUSCULAR HGB CONC 33.1 g/dL (32.0-36.0); MEAN CORPUSCULAR VOLUME 89.1 fL (79-99); RED BLOOD CELL COUNT(AUTO) 4.75 MIL/uL (4.50-6.20); RED CELL DISTRIBUTION WIDTH 14.5 % (11.0-15.5)
[2021-04-29 05:25] LABS: CREATININE 0.8 mg/dL (0.5-1.5); POTASSIUM 4.2 mmol/L (3.5-5.1)
[2021-04-29] MEDS: ALBUTEROL INHALER 90MCG/INH IH SCH ×3 (06:00→20:54)
[2021-04-29 08:00] VITALS: BP 95/62
[2021-04-29] MEDS: PANTOPRAZOLE 40 MG/VIAL IVP SCH ×2 (09:45→20:52)
[2021-04-29] MEDS: NYSTATIN 100000 UNIT/ML 5ML UDCUP PO SCH ×4 (09:45→20:50)
[2021-04-29] MEDS: DEXAMETHASONE 4 MG TAB PO SCH (09:46)
[2021-04-29] MEDS: ENOXAPARIN SODIUM 40 MG/0.4 ML SYRINGE SQ SCH ×2 (09:46→20:52)
[2021-04-29 12:26] VITALS: BP 106/73
[2021-04-29 16:00] VITALS: BP 111/79
[2021-04-29 20:20] VITALS: BP 114/80
[2021-04-29] MEDS: GUAIFENESIN-CODEINE 5 ML SYRUP PO PRN (20:50)
[2021-04-29] MEDS: IBUPROFEN 200 MG TAB PO PRN (20:52)
[2021-04-29] MEDS: CEFTRIAXONE 2GM VIAL IVP SCH (20:52)
[2021-04-29 22:15] VITALS: BP 96/63
[2021-04-30] VITALS: BP 110/71
[2021-04-30 04:00] VITALS: BP 123/73
[2021-04-30 05:41] LABS: HEMATOCRIT 44.1 % (42-54); MEAN CORPUSCULAR HEMOGLOBIN 29.7 pg (27.0-33.0); MEAN CORPUSCULAR HGB CONC 32.7 g/dL (32.0-36.0); MEAN CORPUSCULAR VOLUME 90.9 fL (79-99); RED BLOOD CELL COUNT(AUTO) 4.85 MIL/uL (4.50-6.20); RED CELL DISTRIBUTION WIDTH 14.6 % (11.0-15.5); WHITE BLOOD COUNT (AUTO) 11.4 K/uL (4.8-10.8)
[2021-04-30] MEDS: ALBUTEROL INHALER 90MCG/INH IH SCH ×3 (06:00→22:00)
[2021-04-30 06:07] LABS: CREATININE 0.7 mg/dL (0.5-1.5)
[2021-04-30 07:30] VITALS: BP 122/53
[2021-04-30] MEDS: DEXAMETHASONE 4 MG TAB PO SCH (08:28)
[2021-04-30] MEDS: ENOXAPARIN SODIUM 40 MG/0.4 ML SYRINGE SQ SCH ×2 (08:28→20:15)
[2021-04-30] MEDS: PANTOPRAZOLE 40 MG/VIAL IVP SCH ×2 (08:29→20:09)
[2021-04-30] MEDS: NYSTATIN 100000 UNIT/ML 5ML UDCUP PO SCH ×4 (08:29→20:10)
[2021-04-30 11:00] VITALS: BP 119/68
[2021-04-30] MEDS: GUAIFENESIN-CODEINE 5 ML SYRUP PO PRN ×2 (15:11→20:13)
[2021-04-30 16:00] VITALS: BP 116/71
[2021-04-30 20:00] VITALS: BP 114/66
[2021-04-30] MEDS: CEFTRIAXONE 2GM VIAL IVP SCH (20:07)
[2021-05-01] VITALS (7 sets, daily range): BP systolic 99–144; BP diastolic 54–77
[2021-05-01 04:08] LABS: HEMATOCRIT 42.9 % (42-54); MEAN CORPUSCULAR HEMOGLOBIN 29.8 pg (27.0-33.0); MEAN CORPUSCULAR HGB CONC 33.1 g/dL (32.0-36.0); MEAN CORPUSCULAR VOLUME 89.9 fL (79-99); RED BLOOD CELL COUNT(AUTO) 4.77 MIL/uL (4.50-6.20); RED CELL DISTRIBUTION WIDTH 14.6 % (11.0-15.5); WHITE BLOOD COUNT (AUTO) 13.9 K/uL (4.8-10.8)
[2021-05-01 04:16] LABS: CREATININE 0.8 mg/dL (0.5-1.5); POTASSIUM 4.5 mmol/L (3.5-5.1)
[2021-05-01] MEDS: GUAIFENESIN-CODEINE 5 ML SYRUP PO PRN (05:54)
[2021-05-01] MEDS: DEXAMETHASONE 4 MG TAB PO SCH (08:17)
[2021-05-01] MEDS: PANTOPRAZOLE 40 MG/VIAL IVP SCH ×2 (08:17→20:46)
[2021-05-01] MEDS: NYSTATIN 100000 UNIT/ML 5ML UDCUP PO SCH ×4 (08:17→20:46)
[2021-05-01] MEDS: ENOXAPARIN SODIUM 40 MG/0.4 ML SYRINGE SQ SCH ×2 (08:22→20:47)
[2021-05-01] MEDS: ALBUTEROL INHALER 90MCG/INH IH SCH ×3 (08:27→20:47)
[2021-05-01] MEDS: CEFTRIAXONE 2GM VIAL IVP SCH (20:46)
[2021-05-02 00:04] VITALS: BP 113/64
[2021-05-02 04:00] VITALS: BP 124/75
[2021-05-02 04:16] LABS: HEMATOCRIT 41.4 % (42-54); MEAN CORPUSCULAR HEMOGLOBIN 29.7 pg (27.0-33.0); MEAN CORPUSCULAR HGB CONC 32.6 g/dL (32.0-36.0); MEAN CORPUSCULAR VOLUME 91.2 fL (79-99); RED BLOOD CELL COUNT(AUTO) 4.54 MIL/uL (4.50-6.20); RED CELL DISTRIBUTION WIDTH 14.6 % (11.0-15.5); WHITE BLOOD COUNT (AUTO) 12.5 K/uL (4.8-10.8)
[2021-05-02 04:43] LABS: CREATININE 0.8 mg/dL (0.5-1.5); POTASSIUM 4.6 mmol/L (3.5-5.1)
[2021-05-02] MEDS: ALBUTEROL INHALER 90MCG/INH IH SCH ×3 (05:55→23:12)
[2021-05-02 08:00] VITALS: BP 113/64
[2021-05-02] MEDS: PANTOPRAZOLE 40 MG/VIAL IVP SCH ×2 (08:00→19:57)
[2021-05-02] MEDS: DEXAMETHASONE 4 MG TAB PO SCH (08:00)
[2021-05-02] MEDS: ENOXAPARIN SODIUM 40 MG/0.4 ML SYRINGE SQ SCH ×2 (08:01→19:56)
[2021-05-02] MEDS: NYSTATIN 100000 UNIT/ML 5ML UDCUP PO SCH ×4 (08:02→19:55)
[2021-05-02 12:00] VITALS: BP 140/93
[2021-05-02 16:00] VITALS: BP 123/86
[2021-05-02] MEDS: CEFTRIAXONE 2GM VIAL IVP SCH (19:56)
[2021-05-02 20:00] VITALS: BP 120/77
[2021-05-03] VITALS (7 sets, daily range): BP systolic 96–119; BP diastolic 57–72
[2021-05-03 04:36] LABS: HEMATOCRIT 38.3 % (42-54); MEAN CORPUSCULAR HEMOGLOBIN 29.8 pg (27.0-33.0); MEAN CORPUSCULAR HGB CONC 32.6 g/dL (32.0-36.0); MEAN CORPUSCULAR VOLUME 91.2 fL (79-99); NUCLEATED RED BLOOD CELLS 0.2 % (0.0-0.19); RED BLOOD CELL COUNT(AUTO) 4.2 MIL/uL (4.50-6.20); RED CELL DISTRIBUTION WIDTH 14.7 % (11.0-15.5); WHITE BLOOD COUNT (AUTO) 11.1 K/uL (4.8-10.8)
[2021-05-03 05:03] LABS: CREATININE 0.7 mg/dL (0.5-1.5); POTASSIUM 4.4 mmol/L (3.5-5.1)
[2021-05-03] MEDS: ALBUTEROL INHALER 90MCG/INH IH SCH ×3 (05:50→22:29)
[2021-05-03] MEDS: PANTOPRAZOLE 40 MG/VIAL IVP SCH ×2 (09:00→20:59)
[2021-05-03] MEDS: NYSTATIN 100000 UNIT/ML 5ML UDCUP PO SCH ×4 (09:00→22:29)
[2021-05-03] MEDS: ENOXAPARIN SODIUM 40 MG/0.4 ML SYRINGE SQ SCH ×2 (09:01→20:59)
[2021-05-03] MEDS: DEXAMETHASONE 4 MG TAB PO SCH (09:01)
[2021-05-03] MEDS: PREDNISONE 10 MG TABLET PO SCH (20:59)
[2021-05-03] MEDS: CEFTRIAXONE 2GM VIAL IVP SCH (20:59)
[2021-05-04 03:31] VITALS: BP_SYST 130; BP_SYST 151; BP_DIAS 70; BP_DIAS 75
[2021-05-04] MEDS: ALBUTEROL INHALER 90MCG/INH IH SCH ×3 (06:00→22:02)
[2021-05-04 07:05] VITALS: BP 125/71
[2021-05-04] MEDS: NYSTATIN 100000 UNIT/ML 5ML UDCUP PO SCH ×4 (08:13→21:00)
[2021-05-04] MEDS: ENOXAPARIN SODIUM 40 MG/0.4 ML SYRINGE SQ SCH ×2 (08:14→21:38)
[2021-05-04] MEDS: PREDNISONE 10 MG TABLET PO SCH ×2 (08:14→21:38)
[2021-05-04] MEDS: PANTOPRAZOLE 40 MG/VIAL IVP SCH ×2 (08:14→21:38)
[2021-05-04 11:05] VITALS: BP 114/55
[2021-05-04 15:05] VITALS: BP 102/59
[2021-05-04 20:00] VITALS: BP 116/69
[2021-05-04] MEDS: CEFTRIAXONE 2GM VIAL IVP SCH (21:38)
[2021-05-05] VITALS: BP 105/64
[2021-05-05 04:00] VITALS: BP 109/65
[2021-05-05 08:00] VITALS: BP 115/68
[2021-05-05] MEDS: NYSTATIN 100000 UNIT/ML 5ML UDCUP PO SCH ×2 (08:04→21:18)
[2021-05-05] MEDS: PANTOPRAZOLE 40 MG/VIAL IVP SCH ×2 (08:04→21:18)
[2021-05-05] MEDS: ENOXAPARIN SODIUM 40 MG/0.4 ML SYRINGE SQ SCH ×2 (08:04→21:18)
[2021-05-05] MEDS: PREDNISONE 10 MG TABLET PO SCH ×2 (08:04→21:18)
[2021-05-05 11:54] VITALS: BP 90/54
[2021-05-05 16:00] VITALS: BP 128/74
[2021-05-05 20:00] VITALS: BP 136/67
[2021-05-05] MEDS: ALBUTEROL INHALER 90MCG/INH IH SCH (21:17)
[2021-05-05] MEDS: CEFTRIAXONE 2GM VIAL IVP SCH (21:19)
[2021-05-06] VITALS: BP 109/57
[2021-05-06 04:00] VITALS: BP 121/59
[2021-05-06] MEDS: ALBUTEROL INHALER 90MCG/INH IH SCH (05:57)
[2021-05-06 08:00] VITALS: BP 109/56
[2021-05-06] MEDS: NYSTATIN 100000 UNIT/ML 5ML UDCUP PO SCH ×3 (09:03→17:58)
[2021-05-06] MEDS: PREDNISONE 10 MG TABLET PO SCH (09:03)
[2021-05-06] MEDS: PANTOPRAZOLE 40 MG/VIAL IVP SCH (09:03)
[2021-05-06] MEDS: ENOXAPARIN SODIUM 40 MG/0.4 ML SYRINGE SQ SCH (09:04)
[2021-05-06 12:00] VITALS: BP 109/56
[2021-05-06 16:00] VITALS: BP 117/81
== END 2021-05-06 20:20 | DRG 177 ==
LOC: EDH 10:50 → EDHIP 15:29 → 2AH 04-23 18:15 → 4BH 04-29 21:26
PROVIDERS: ADMIT Internal Medicine; ATTEND Internal Medicine
PROC: 5A0945A Assistance with Respiratory Ventilation, 24-96 Consecutive Hours, High Flow/Velocity Cannula (ICD-10-PCS; principal; 2021-04-26)
DX: U07.1 COVID-19 (principal); J12.82 Pneumonia due to coronavirus disease 2019; J96.21 Acute and chronic respiratory failure with hypoxia; J15.5 Pneumonia due to Escherichia coli; I13.0 Hypertensive heart and chronic kidney disease with heart failure and stage 1 through stage 4 chronic kidney disease, or unspecified chronic kidney disease; I48.20 Chronic atrial fibrillation, unspecified; I50.32 Chronic diastolic (congestive) heart failure; N18.2 Chronic kidney disease, stage 2 (mild); E03.9 Hypothyroidism, unspecified; F41.9 Anxiety disorder, unspecified; H40.9 Unspecified glaucoma; I25.10 Atherosclerotic heart disease of native coronary artery without angina pectoris; J43.9 Emphysema, unspecified; K21.9 Gastro-esophageal reflux disease without esophagitis; M19.90 Unspecified osteoarthritis, unspecified site; Y95 Nosocomial condition; Z96.649 Presence of unspecified artificial hip joint; Z79.01 Long term (current) use of anticoagulants; Z85.46 Personal history of malignant neoplasm of prostate; Z87.891 Personal history of nicotine dependence; Z95.0 Presence of cardiac pacemaker
CPT/HCPCS: 36415; 36600; 71045; 71250; 80048; 80053; 81001; 82550; 82803; 82948; 83605; 83615; 83735; 83874; 83880; 84132; 84145; 84484; 85025; 85027; 85378; 85610; 85730; 86140; 87071; 87077; 87186; 87205; 87635; 87804; 92610; 93005; 93970; 97039; 99291; C9113; C9803; G0378; J0696; J1100; J1650; J1940; J1956; J7512; J8540

== ENCOUNTER 2021-07-03 11:09 | Inpatient (IN) | payer OTHER ==
[~2021-07-03] VITALS: Ht 180.3 cm; Wt 72.3 kg
[~2021-07-03 11:09] MED LIST changes: -ACET1TAB25 PO; +IBUP-14 PO; +LEVO500T90 PO; +PRED10TA3 PO
[2021-07-03 11:30] LABS: ABG BASE EXCESS -2.2 mmol/L (-2.0-3.0); ABG HCO3 20.6 mmol/L (21.0-28.0); ABG OXYGEN SATURATION 89.2 % (95.0-99.0); ABG PCO2 30 mmHg (35-48)
[2021-07-03] MEDS ORDERED: SOLU-MEDROL 125MG VIAL ONE (11:32)
[2021-07-03 11:37] LABS: BASOPHILS % (AUTO) 0.3 % (0.0-5.0); EOSINOPHILS % (AUTO) 0.4 % (0.0-8.0); HEMATOCRIT 41.6 % (42-54); LYMPHOCYTES % (AUTO) 6.6 % (21.0-51.0); MEAN CORPUSCULAR HEMOGLOBIN 30.2 pg (27.0-33.0); MEAN CORPUSCULAR HGB CONC 31.7 g/dL (32.0-36.0); MEAN CORPUSCULAR VOLUME 95.2 fL (79-99); MONOCYTES % (AUTO) 4.9 % (3.0-13.0); NEUTROPHILS % (AUTO) 87.1 % (40.0-77.0); PLATELET COUNT (AUTO) 254 K/uL (130-400); RED BLOOD CELL COUNT(AUTO) 4.37 MIL/uL (4.50-6.20); RED CELL DISTRIBUTION WIDTH 16.3 % (11.0-15.5); WHITE BLOOD COUNT (AUTO) 14.3 K/uL (4.8-10.8)
[2021-07-03 11:56] LABS: CREATININE 0.7 mg/dL (0.5-1.5); POTASSIUM 4.4 mmol/L (3.5-5.1)
[2021-07-03] MEDS ORDERED: ONDANSETRON 4MG INJ ONE (11:59)
[2021-07-03] MEDS ORDERED: LEVOFLOXACIN 500 MG/D5W 100 ML 100 ML IV ONE (12:00)
[2021-07-03] MEDS ORDERED: MORPHINE 2 MG SYG ONE (12:00)
[2021-07-03 12:02] LABS: ALBUMIN 2.7 g/dL (3.5-5.0); BILIRUBIN,TOTAL 0.6 mg/dL (0.2-1.0); TOTAL PROTEIN, SERUM 6.3 g/dL (6.0-8.3)
[2021-07-03 12:16] LABS: INR 1.04 (0.85-1.15); PROTHROMBIN TIME 11.3 SEC (9.6-11.6)
[2021-07-03 12:18] LABS: PARTIAL THROMBOPLASTIN TIME 27.4 SEC (26.3-35.5)
[2021-07-03] MEDS ORDERED: SOLU-MEDROL 125MG VIAL IVP ONE (12:30)
[2021-07-03] MEDS ORDERED: IPRATROPIUM/ALBUTEROL SULFATE 3 ML SOLUTION IH ONE (12:30)
[2021-07-03] MEDS ORDERED: ONDANSETRON 4MG INJ IVP ONE (12:30)
[2021-07-03] MEDS ORDERED: MORPHINE 2 MG SYG IVP ONE (12:30)
[2021-07-03] MEDS ORDERED: PRED10TA3 PO (13:27)
[2021-07-03] MEDS ORDERED: MORPHINE 2 MG SYG IVP PRN (13:30)
[2021-07-03] MEDS ORDERED: IPRATROPIUM/ALBUTEROL SULFATE 3 ML SOLUTION IH PRN (13:30)
[2021-07-03 14:10] VITALS: BP 118/56
[2021-07-03] MEDS ORDERED: POTA-202 PO (14:22)
[2021-07-03] MEDS ORDERED: FURO20TA4 PO (14:22)
[2021-07-03] MEDS: IPRATROPIUM/ALBUTEROL SULFATE 3 ML SOLUTION IH SCH ×2 (15:00→19:09)
[2021-07-03] MEDS: SOLU-MEDROL 40MG VIAL IVP SCH (16:53)
[2021-07-03] MEDS ORDERED: BUDESONIDE 0.25 MG/2 ML INH IH SCH (18:00)
[2021-07-03 19:00] VITALS: BP 121/80
[2021-07-03] MEDS ORDERED: ACETAMINOPHEN 325 MG TAB PO PRN ×2 (20:30)
[2021-07-03] MEDS: ENOXAPARIN SODIUM 80 MG/0.8 ML SQ SCH (20:50)
[2021-07-04] VITALS (47 sets, daily range): BP systolic 77–220; BP diastolic 33–85
[2021-07-04] MEDS: SOLU-MEDROL 40MG VIAL IVP SCH ×3 (00:01→22:08)
[2021-07-04 04:34] LABS: HEMATOCRIT 44.9 % (42-54); MEAN CORPUSCULAR HEMOGLOBIN 29.8 pg (27.0-33.0); MEAN CORPUSCULAR HGB CONC 31.6 g/dL (32.0-36.0); MEAN CORPUSCULAR VOLUME 94.3 fL (79-99); RED BLOOD CELL COUNT(AUTO) 4.76 MIL/uL (4.50-6.20); RED CELL DISTRIBUTION WIDTH 16.1 % (11.0-15.5)
[2021-07-04 04:51] LABS: ALBUMIN 2.2 g/dL (3.5-5.0); BILIRUBIN,TOTAL 0.9 mg/dL (0.2-1.0); CREATININE 0.9 mg/dL (0.5-1.5); POTASSIUM 5.2 mmol/L (3.5-5.1); TOTAL PROTEIN, SERUM 5.9 g/dL (6.0-8.3)
[2021-07-04 05:36] LABS: ABG BASE EXCESS 0.8 mmol/L (-2.0-3.0); ABG HCO3 22.6 mmol/L (21.0-28.0); ABG PCO2 29 mmHg (35-48)
[2021-07-04] MEDS ORDERED: IPRATROPIUM/ALBUTEROL SULFATE 3 ML SOLUTION IH SCH (06:00)
[2021-07-04 07:36] LABS: ABG BASE EXCESS -1.4 mmol/L (-2.0-3.0); ABG HCO3 21.2 mmol/L (21.0-28.0); ABG OXYGEN SATURATION 86.6 % (95.0-99.0); ABG PCO2 30 mmHg (35-48)
[2021-07-04] MEDS ORDERED: LACTATED RINGERS 1000ML 1,000 ML IV ONE (07:39)
[2021-07-04] MEDS ORDERED: INSULIN HUMULIN R 100 UNIT/ML 3ML IV SCH (07:43)
[2021-07-04] MEDS ORDERED: CALCIUM GLUC 1GM/10ML VIAL IV STA (07:43)
[2021-07-04] MEDS ORDERED: SOLU-MEDROL 40MG VIAL IVP SCH (08:00)
[2021-07-04] MEDS ORDERED: CALCIUM GLUC 1GM 1 GM in 0.9%NACL 100ML 100 ML IV SCH (08:00)
[2021-07-04] MEDS ORDERED: KAYEXALATE 15GM/60ML PO SCH (08:00)
[2021-07-04] MEDS ORDERED: ALBUTEROL 0.042% 1.25MG/3ML IH SCH (08:00)
[2021-07-04] MEDS ORDERED: LACTATED RINGERS 1000ML 2,259 ML IV SCH (08:00)
[2021-07-04] MEDS ORDERED: DEXTROSE 50%-WATER 50 ML DISP.SYRIN IV SCH (08:00)
[2021-07-04] MEDS: ENOXAPARIN SODIUM 80 MG/0.8 ML SQ SCH ×2 (08:31→20:25)
[2021-07-04 08:48] LABS: APPEARANCE,URINE Clear (CLEAR); BILIRUBIN,URINE Negative (NEGATIVE); COLOR,URINE Dark Yellow (YELLOW); GLUCOSE, URINE (UA) Negative (NEGATIVE); KETONES,URINE 15 mg/dL (NEGATIVE); LEUKOCYTE ESTERASE ,URINE Negative (NEGATIVE); NITRATE,URINE Negative (NEGATIVE); OCCULT BLOOD,URINE Negative (NEGATIVE); PH,URINE 6.5 (5.0-8.0); PROTEIN,URINE POS 1+ mg/dL (NEGATIVE)
[2021-07-04] MEDS ORDERED: OSELTAMIVIR PHOSPHATE 75 MG CAP PO SCH (09:00)
[2021-07-04] MEDS ORDERED: FUROSEMIDE 20MG VIAL IV SCH (09:00)
[2021-07-04] MEDS ORDERED: PREDNISONE 10 MG TABLET PO SCH (09:00)
[2021-07-04] MEDS ORDERED: FUROSEMIDE 20 MG TABLET PO SCH (09:00)
[2021-07-04] MEDS: BUDESONIDE 0.25 MG/2 ML INH IH SCH ×2 (09:14→21:52)
[2021-07-04] MEDS: IPRATROPIUM/ALBUTEROL SULFATE 3 ML SOLUTION IH SCH ×3 (09:14→18:46)
[2021-07-04 09:22] LABS: ABG BASE EXCESS -7.3 mmol/L (-2.0-3.0); ABG HCO3 19.5 mmol/L (21.0-28.0); ABG PCO2 44 mmHg (35-48)
[2021-07-04 09:25] LABS: ABG BASE EXCESS -6.2 mmol/L (-2.0-3.0); ABG HCO3 20.6 mmol/L (21.0-28.0); ABG OXYGEN SATURATION 98.2 % (95.0-99.0); ABG PCO2 46 mmHg (35-48)
[2021-07-04 09:26] LABS: RBC,URINE 0-1 /HPF (0-1); WBC,URINE 0-1 /HPF (0-1)
[2021-07-04 09:27] LABS: BACTERIA,URINE Few /HPF (None Seen); SQUAMOUS EPITHELIAL CELL,UR 0-2 /HPF (0-2)
[2021-07-04] MEDS ORDERED: DEXMEDETOMIDINE HCL 200 MCG in 0.9%NACL 50ML 50 ML IV SCH (09:30)
[2021-07-04 09:36] LABS: INR 1.63 (0.85-1.15)
[2021-07-04] MEDS ORDERED: NOREPINEPHRIN 4MG/NS 250ML 250 ML IV ONE (10:56)
[2021-07-04] MEDS ORDERED: NOREPINEPHRIN 4MG/NS 250ML 250 ML IV SCH (11:00)
[2021-07-04] MEDS ORDERED: FENTANYL 2500MCG+NS 250ML 250 ML IV ONE (12:56)
[2021-07-04 13:08] LABS: ABG BASE EXCESS -3.6 mmol/L (-2.0-3.0); ABG HCO3 22.1 mmol/L (21.0-28.0); ABG PCO2 43 mmHg (35-48)
[2021-07-04 14:39] LABS: ABG BASE EXCESS -6.5 mmol/L (-2.0-3.0); ABG HCO3 21.8 mmol/L (21.0-28.0); ABG OXYGEN SATURATION 82.2 % (95.0-99.0); ABG PCO2 54 mmHg (35-48)
[2021-07-04] MEDS ORDERED: NOREPINEPHRINE 8MG/NS 250ML PREMIX IV SCH (17:00)
[2021-07-04] MEDS ORDERED: MIDAZOLAM 100MG-0.9% NS 100ML 100ML BAG IV SCH (17:00)
[2021-07-04] MEDS ORDERED: FENTANYL 2500MCG+NS 250ML IV.SOLN IV SCH (17:30)
[2021-07-04 19:44] LABS: ABG HCO3 22.5 mmol/L (21.0-28.0); ABG PCO2 51 mmHg (35-48)
[2021-07-04] MEDS ORDERED: VASOPRESSIN 40 UNITS in 0.9%NACL 50ML 40 ML IV STA (20:02)
[2021-07-04] MEDS ORDERED: VASOPRESSIN 40 UNITS in 0.9%NACL 50ML 40 ML IV SCH (20:30)
[2021-07-05] VITALS: BP 148/50
[2021-07-05 00:03] VITALS: BP 148/50
== END 2021-07-05 00:23 | DRG 871 ==
LOC: EDH 11:09 → OBSVTOIN 12:49 → EDHIP 12:49 → 3AH 14:21 → 2BH 07-04 08:20
PROVIDERS: ADMIT Internal Medicine; ATTEND Internal Medicine
PROC: 5A09357 Assistance with Respiratory Ventilation, Less than 24 Consecutive Hours, Continuous Positive Airway Pressure (ICD-10-PCS; 2021-07-03)
PROC: 5A0935A Assistance with Respiratory Ventilation, Less than 24 Consecutive Hours, High Flow/Velocity Cannula (ICD-10-PCS; 2021-07-03)
PROC: 5A1935Z Respiratory Ventilation, Less than 24 Consecutive Hours (ICD-10-PCS; 2021-07-04)
PROC: 5A09357 Assistance with Respiratory Ventilation, Less than 24 Consecutive Hours, Continuous Positive Airway Pressure (ICD-10-PCS; 2021-07-04)
PROC: 5A0935A Assistance with Respiratory Ventilation, Less than 24 Consecutive Hours, High Flow/Velocity Cannula (ICD-10-PCS; 2021-07-04)
PROC: 0BH17EZ Insertion of Endotracheal Airway into Trachea, Via Natural or Artificial Opening (ICD-10-PCS; 2021-07-04)
PROC: 02HV33Z Insertion of Infusion Device into Superior Vena Cava, Percutaneous Approach (ICD-10-PCS; 2021-07-04)
PROC: B548ZZA Ultrasonography of Superior Vena Cava, Guidance (ICD-10-PCS; 2021-07-04)
PROC: 5A12012 Performance of Cardiac Output, Single, Manual (ICD-10-PCS; principal; 2021-07-05)
DX: A41.9 Sepsis, unspecified organism (principal); J96.21 Acute and chronic respiratory failure with hypoxia; J18.9 Pneumonia, unspecified organism; R65.21 Severe sepsis with septic shock; I50.33 Acute on chronic diastolic (congestive) heart failure; I26.99 Other pulmonary embolism without acute cor pulmonale; J44.1 Chronic obstructive pulmonary disease with (acute) exacerbation; J44.0 Chronic obstructive pulmonary disease with (acute) lower respiratory infection; J95.851 Ventilator associated pneumonia; I48.0 Paroxysmal atrial fibrillation; Z20.822 Contact with and (suspected) exposure to COVID-19; K86.9 Disease of pancreas, unspecified; I11.0 Hypertensive heart disease with heart failure; I25.10 Atherosclerotic heart disease of native coronary artery without angina pectoris; Z96.642 Presence of left artificial hip joint; Z88.0 Allergy status to penicillin; Z91.013 Allergy to seafood; Z99.81 Dependence on supplemental oxygen; Z95.0 Presence of cardiac pacemaker; Z87.891 Personal history of nicotine dependence; Z85.46 Personal history of malignant neoplasm of prostate; Z87.01 Personal history of pneumonia (recurrent)
CPT/HCPCS: 31500; 36415; 36600; 71045; 80053; 81001; 82435; 82550; 82803; 82947; 83605; 83880; 84132; 84295; 84484; 85018; 85025; 85027; 85378; 85610; 85730; 87040; 87071; 87077; 87186; 87205; 87635; 92950; 93005; 93970; 94002; 94003; 94640; 94660; 94664; 99291; C1751; C9803; G0378; J0610; J1650; J1815; J1940; J1956; J2405; J2920; J2930; J3010; J3490; J7070; J7120